=== PATIENT | female | born 1945 | race Caucasian/White ===

== ENCOUNTER 2017-05-10 09:30 | Emergency (ER) | payer MEDICARE, SELFPAY | END 2017-05-10 11:02 | disposition home or self-care (01) | PROVIDERS: Emergency Provider Nurse Practitioner Family; Family Provider Family Medicine; Visit Provider Nurse Practitioner Family | DX: N39.0 Urinary tract infection, site not specified (principal) | CPT/HCPCS: G0463; 81003; 87077; 87086; 87186; 99201 ==

== ENCOUNTER → 2018-07-06 09:47 | Outpatient (CLI) | payer MEDICARE, SELFPAY ==
--- NOTE | 2018-07-06 09:56 | XR_ITS ---
XR KUB Ordering Physician: Brianne Aguilar Patient Age: 73 years: Female HISTORY: ITS.REASON: CONSTIPATION, LOW ABD PAIN TECHNIQUE: Supine KUB COMPARISON :None available FINDINGS supine abdomen only Prominent gas is seen throughout majority of the colon is most notable feature. Most prominent gas at the right colon, transverse colon, splenic flexure and continuing through the left colon... Gas-filled large bowel measures up to 7.5 diameter. Again prominent gas throughout colon but severely dilated. Is patient passing gas? Minimal stool identified throughout the colon. There is also some minimal gas at the distal small bowel with upper normal caliber some these distal small bowel loops. No upright film to evaluate for air-fluid levels. Previous cholecystectomy. No organomegaly. No appreciable renal calculi. Degenerative changes spine with degenerative exuberant facet changes L5/S1 and to lesser L4/5 most notable. Lung bases partially imaged, clear IMPRESSION: ... Increased gas throughout colon. Prominent gaseous distention throughout large bowel. .Minimal stool in colon . gas-filled distal small bowel loops. Upper normal in caliber. Not significantly dilated
== END ==
PROVIDERS: PCP Nurse Practitioner Family; Visit Provider Nurse Practitioner Family
DX: K59.00 Constipation, unspecified (principal); R10.30 Lower abdominal pain, unspecified
CPT/HCPCS: 74018

== ENCOUNTER → 2018-07-20 11:22 | Outpatient (POV) | payer MEDICARE, SELFPAY | PROVIDERS: Visit Provider Nurse Practitioner Acute Care | DX: Z00.00 Encounter for general adult medical examination without abnormal findings (principal) ==

== ENCOUNTER 2018-07-23 22:33 | Inpatient (IN) ==
[2018-07-23 23:10] LABS: Basophils % 0.2 % (0.1-2.0); Eosinophils % 0.1 % (0.1-12.0); Hematocrit 29.8 % (37.0-47.0); Hemoglobin 8.3 g/dL (12.2-16.2); Lymphocytes % 9.4 % (10-50); Mean Corpuscular HGB Conc 27.9 g/dL (31.8-35.4); Mean Corpuscular Hemoglobin 19.5 pg (27.0-31.2); Mean Corpuscular Volume 69.9 fl (81-99); Mean Platelet Volume 6.8 fl (7.4-10.4); Monocytes # 0.3 K/mm3 (0.1-1.0); Neutrophils # 9.4 K/mm3 (1.8-7.8); Neutrophils % 87.3 % (37.0-80.0); Platelet Count 736 K/mm3 (142-424); Red Blood Count 4.27 M/mm3 (4.20-5.40); Red Cell Distribution Width 15.1 % (11.5-17.5); White Blood Count 10.8 K/mm3 (4.8-10.8)
[2018-07-23 23:24] LABS: Albumin/Globulin Ratio 0.7 (1.1-1.8); Anion Gap 16.9 mEq/L (5-15); Bilirubin,Total 0.4 mg/dL (0.2-1.0); Calcium 9.1 mg/dL (8.5-10.1); Globulin 4.2 gm/dl (1.3-3.2); Total Protein,Serum 7.2 gm/dL (6.4-8.2)
[2018-07-23 23:35] LABS: Potassium 2.9 mmoL/L (3.5-5.1)
[2018-07-24 00:11] LABS: Lymphocytes % 7 % (10-50); Monocytes % 1 % (2-9); Neutrophils % 92 % (42-76); Total Cells Counted 100
[2018-07-24 00:13] LABS: Ovalocytes 1+
--- NOTE | 2018-07-24 00:28 | Emergency Department Note ---
ED Disposition Clinical Impression: Large bowel obstruction, Hypokalemia Anemia Qualifiers: Anemia type: unspecified type Qualified Code(s): D64.9 - Anemia, unspecified Disposition: Admitted As Inpatient Condition on Discharge: Fair Instructions: DI for Diarrhea and Traveler's Diarrhea -- Adult, DI for Diarrhea and Traveler's Diarrhea -- Child, DI for Nausea -- Adult, DI for Nausea -- Child Referrals: Shonna Desir MD [Primary Care Provider] - - Critical Care Critical Care Time: No Attestation: On 07/23/18, the high probability of a clinically significant, sudden or life threatening deterioration of the following system(s) required my full and direct attention, intervention and personal management. The time I documented below is in addition to time spent performing reported procedures but includes the following listed in this critical care notation. Medical Decision Making - Medical Records Medical records reviewed: Yes: I reviewed the patient's medical records. - [place] Inquiry Pt receiving controlled substance: No Vital Signs: 07/23/18 22:34 Temperature 98.8 F Temperature Source Oral Pulse Rate [Apical] 147 H Respiratory Rate 16 Blood Pressure [Right Arm] 88/60 L Blood Pressure Mean [Right Arm] 69 Blood Pressure Source [Right Arm] Manual Cuff/ Auscultation Blood Pressure Position [Right Arm] Supine 02 Sat by Pulse Oximetry 97 Oxygen Delivery Method Room Air - Lab Data Lab results reviewed: Yes: I reviewed the patient's lab results. Lab Results 07/23/18 22:51: POC Glucose 145 H 07/23/18 22:55: WBC 10.8, RBC 4.27, Hgb 8.3 L, Hct 29.8 L, MCV 69.9 L, MCH 19.5 L, MCHC 27.9 L, RDW 15.1, Plt Count 736 H, MPV 6.8 L, Neut % (Auto) 87.3 H, Lymph % (Auto) 9.4 L, [place] % (Auto) 3.0, Eos % (Auto) 0.1, Baso % (Auto) 0.2, Neut # (Auto) 9.4 H, Lymph # (Auto) 1.0, [place] # (Auto) 0.3, Eos # (Auto) 0.0, Baso # (Auto) 0.0, Total Counted 100, Neutrophils % (Manual) 92 H, Lymphocytes % (Manual) 7 L, Monocytes % (Manual) 1 L, Platelet Estimate Normal, Microcytosis 2+, Ovalocytes 1+ 07/23/18 22:55: Sodium 135 L, Potassium 2.9 L*, Chloride 99, Carbon Dioxide 22, Anion Gap 16.9 H, BUN 12, Creatinine 0.87, Estimated Creat Clear 46, Estimated GFR 64, Est GFR ( Amer) 77, Glucose 158 H, Calcium 9.1, Total Bilirubin 0.4, AST 12 L, ALT 23, Alkaline Phosphatase 103, C-Reactive Protein 3.0 H, Total Protein 7.2, Albumin 3.0 L, Globulin 4.2 H, Albumin/Globulin Ratio 0.7 L 07/23/18 22:55: ESR 17 07/23/18 22:55: Lactate 1.4 Result diagrams: 07/23/18 22:55 07/23/18 22:55 Orders (Tests/Meds): ED MEDICATIONS Generic Name Dose Route Start Last Admin Trade Name Freq PRN Reason Stop Dose Admin Sodium Chloride 1,000 mls @ 999 mls/hr 07/23/18 23:00 07/24/18 00:08 Sod Chlor 0.9% 1000ml Bag IV 07/24/18 01:00 999 mls/hr .Q1H1M JIAN Administration Potassium Chloride/Water 100 mls @ 50 mls/hr 07/24/18 00:55 Potassium Chloride 20meq/100ml Ivpb IV 07/24/18 02:54 ONCE ONE Sodium Chloride 10 ml 07/23/18 22:59 Saline Flush 10ml Syringe IV 08/22/18 22:58 NEEDED PRN Maintain IV Site Discontinued Medications Generic Name Dose Route Start Last Admin Trade Name Freq PRN Reason Stop Dose Admin Ondansetron HCl 4 mg 07/23/18 22:59 07/23/18 23:01 Zofran 4mg/2ml Vial IV 07/23/18 23:00 4 mg ONCE ONE Administration ORDERS Category Date Time Status CT abdomen pelvis wo con Stat Cat Scan 07/23/18 22:56 Taken XR chest portable Stat Exams 07/23/18 22:56 Taken Magnesium Stat Lab 07/24/18 00:55 Ordered Occult Blood,Stool Stat Lab 07/24/18 00:55 Received Blood Culture Stat Micro 07/23/18 22:55 Received ECG Request by /Nse Stat Y 07/23/18 22:48 Ordered - Radiology Data #1 Image(s): Chest Image Reviewed: Yes I reviewed the patient's radiology image Preliminary Findings: Normal/NAD - CT Data CT Scan: Abdomen, Pelvis Time Received: 01:[address] Reviewed: Yes: I have viewed the radiologist's interpretation Preliminary Findings: Abnormal (bowel obstruction ) - ECG Data Tracing #1 Arrhythmias present: afib Ischemic changes: non-specific ST-T wave changes Tracing #2 Normal Sinus Rhythm: Yes Ischemic changes: non-specific ST-T wave changes - Physician Consults Physician Consulted: nuria Reason -: Admission Nausea/Vomiting/Diarrhea HPI - General Chief complaint: Nausea/Vomiting/Diarrhea Stated complaint: VOMITING, POSSIBLE BOWEL OBSTRUCTION Time Seen by Provider: 07/23/18 23:05 Mode of Arrival: Ambulatory Source of Information: Patient, Spouse, Medical Record Limitations: No Limitations Description of Symptoms (Recalled from ER Triage Doc. by RN): PATIENT SAW DR. DESIR ON FRIDAY, WHO STATED PATIENT HAD UTI AND POSSIBLE BOWEL OBSTRUCTION. PATIENT HAS BEEN VOMITING TODAY WITHOUT NAUSEA X4; INITIAL EMESIS WAS DARK PER PATIENT REPORT; HAS APPOINTMENT WITH DR. MIRANDA - History of Present Illness HPI Narrative: over the last few weeks has progressive nausea and weakness with dec bowel mov but no melena or bleeding MD complaint: nausea, abdominal pain Onset (ago): day(s) Associated Abdominal Pain: Yes Severity: moderate Associated symptoms: weakness - Related Data Home Medications Medication Instructions Recorded Confirmed Aspirin [Aspir 81] 81 mg PO DIRECTED 07/23/18 07/24/18 Oxazepam 10 mg PO Q6 PRN 07/23/18 07/24/18 Saccharomyces Boulardii [Florastor] 250 mg PO DAILY 07/23/18 07/24/18 Allergies Allergy/AdvReac Type Severity Reaction Status Date / Time No Known Allergies Allergy Unverified 05/10/17 10:16 [facility] History - Hepatitis A Screen Drug use history?: No High risk sexual behaviors?: No History of sexually transmitted infection?: No Currently employed?: No Childcare worker?: No Do you have indoor plumbing?: Yes Do you have electricity?: Yes Attestation statement:: This patient has been screened for Hepatitis A risk factors. I have reviewed the patient's past medical history: Yes Medical History: Denies:: Diabetes Mellitus Type 1, Diabetes Mellitus Type 2, Internal Pacemaker, Lung Disease Other Surgeries: No: Pacemaker - Social History Smoking Status: Never smoker Alcohol Intake: never Occupational Status: other - Psychiatric History Expresses thoughts of harming self/others: None Suicide Plan Description: No Plan ROS Obtained: Yes All systems reviewed & no additional complaints - Constitutional Constitutional: Denies fever(s) - Eyes Eyes: Denies change in vision - ENT Ears, Nose, Mouth, and Throat: Denies sore throat - Cardiovascular Cardiovascular: Denies chest pain - Respiratory Respiratory: No cough - Gastrointestinal Gastrointestingal: Reports: as per HPI, abdominal pain, nausea, vomiting. D enies: diarrhea - Genitourinary Female Genitourinary: Denies hematuria - Musculoskeletal Musculoskeletal: Denies joint pain, Denies joint swelling - Integumentary/Breasts Skin/Breast: Denies rash - Neurologic Neurologic: Denies seizure-like activity Physical Exam - General General appearance: alert - Head Head exam: normocephalic - Eye Eye exam: Present: PERRL, EOMI. Absent: scleral icterus - ENT ENT exam: Present: mucous membranes dry - Neck Neck exam: Absent: trachea midline - Respiratory Respiratory exam: Absent: respiratory distress - Cardiovascular Cardiovascular exam: Present: regular rate, systolic murmur, +S4 - Abdominal Exam Abdominal exam: Present: soft - Extremities Exam Extremities exam: Present: full ROM - Neurological Exam Neurological exam: Present: alert, oriented X3, CN II-XII intact - Psychiatric Psychiatric exam: Present: normal affect - Skin Skin exam: Absent: rash
--- NOTE | 2018-07-24 07:16 | History & Physical Report ---
*Admission Date: 07/24/18 *Chief complaint: Vomiting *History of present illness: 73-year-old female who is in relatively good health presented to the emergency department with multiple episodes of vomiting and increasing weakness. Patient tells me she had been seen in our office on Friday by Dr. Desir with episodes of bloating, poor appetite with a 6 pound weight loss, and nausea. Apparently Dr. Desir felt like the patient may have a bowel obstruction. It was arranged for her to have both upper and lower scopes by Dr. Winn which is scheduled for today. Patient started her bowel prep yesterday which seemed to trigger the vomiting. After multiple episodes of vomiting and increasing weakness EMS was called and she was transported to the emergency department. Patient does report a change in bowel habits over the last several months although she still goes daily but describes her bowel movements as being smaller. Workup in the emergency department revealed a microcytic anemia in addition to a large bowel obstruction and suspicious for a lesion on the left colon. Patient has been admitted for further workup. [facility] History I have reviewed the patient's past medical history: Yes Medical History: Denies:: Cancer, Diabetes Mellitus Type 1, Diabetes Mellitus Type 2, Internal Pacemaker, Lung Disease, MRSA *Have you ever received a pneumonia vaccine?: Yes (2017 (5 yr)) *Have you received a flu vaccine this season?: Yes (Fall 2017) Other Surgeries: Yes: Cholecystectomy (1996). No: Pacemaker - *Social History Educational Level: Completed High School Smoking Status: Never smoker Alcohol Intake: never *Occupational Status:: other Housing: house Household Members: spouse *Travel in the last 8 weeks: None - Psychiatric History Expresses thoughts of harming self/others: None Suicide Plan Description: No Plan Family Hx:: no Cancer Review of Systems - Review of Systems Review of systems:: pertinent systems reviewed and negative unless documented below - Constitutional Denies body ache(s), Denies chills, Denies fever(s), Denies headache(s) - *Cardiovascular Denies chest pain - *Respiratory Denies chest congestion, Denies cough - *Gastrointestinal Reports bloating, Reports change in bowel habits, Reports change in stools, Reports cramping, Reports feeling full early, Denies coffee ground vomit, Denies constipation, Denies loose stools, Denies heartburn - *Musculoskeletal Denies abnormal walking - *Neurologic Denies seizure-like activity Meds Home Medications Medication Instructions Recorded Confirmed Type Aspirin [Aspir 81] 81 mg PO DIRECTED 07/23/18 07/24/18 History Oxazepam 10 mg PO Q6 PRN 07/23/18 07/24/18 History Saccharomyces Boulardii [Florastor] 250 mg PO DAILY 07/23/18 07/24/18 History Allergies Allergy/AdvReac Type Severity Reaction Status Date / Time No Known Allergies Allergy Unverified 05/10/17 10:16 Exam Vital signs and Labs for Last 24 Hours: Temp Pulse Resp BP Pulse Ox 98.6 F 86 18 130/62 95 07/24/18 04:00 07/24/18 04:00 07/24/18 04:00 07/24/18 04:00 07/24/18 04:00 Laboratory Results - last 24 hr 07/23/18 22:51: POC Glucose 145 H 07/23/18 22:55: WBC 10.8, RBC 4.27, Hgb 8.3 L, Hct 29.8 L, MCV 69.9 L, MCH 19.5 L, MCHC 27.9 L, RDW 15.1, Plt Count 736 H, MPV 6.8 L, Neut % (Auto) 87.3 H, Lymph % (Auto) 9.4 L, [place] % (Auto) 3.0, Eos % (Auto) 0.1, Baso % (Auto) 0.2, Neut # (Auto) 9.4 H, Lymph # (Auto) 1.0, [place] # (Auto) 0.3, Eos # (Auto) 0.0, Baso # (Auto) 0.0, Total Counted 100, Neutrophils % (Manual) 92 H, Lymphocytes % (Manual) 7 L, Monocytes % (Manual) 1 L, Platelet Estimate Normal, Microcytosis 2+, Ovalocytes 1+ 07/23/18 22:55: Sodium 135 L, Potassium 2.9 L*, Chloride 99, Carbon Dioxide 22, Anion Gap 16.9 H, BUN 12, Creatinine 0.87, Estimated Creat Clear 46, Estimated GFR 64, Est GFR ( Amer) 77, Glucose 158 H, Calcium 9.1, Total Bilirubin 0.4, AST 12 L, ALT 23, Alkaline Phosphatase 103, C-Reactive Protein 3.0 H, Total Protein 7.2, Albumin 3.0 L, Globulin 4.2 H, Albumin/Globulin Ratio 0.7 L 07/23/18 22:55: ESR 17 07/23/18 22:55: Lactate 1.4 07/24/18 00:00: Magnesium 2.1 07/24/18 00:55: Stool Occult Blood Positive A I & O for Last 24 hours: Intake & Output 07/21/18 07/22/18 07/23/18 07/24/18 11:59 11:59 11:59 11:59 Intake Total 3333 / 3333 Output Total 450 / 450 Balance 2883 / 2883 Weight 134 lb 4 oz Narrative: Patient is awake and alert resting comfortably in bed. Oropharynx is moist and clear. Neck is without lymphadenopathy. Lungs are clear to auscultation. Heart has a regular rate and rhythm with intermittent extra systolic beat. Abdomen is soft, nontender, nondistended with active bowel sounds. Neurologic exam is grossly normal. Patient has active range of motion in all extremities. Assessment and Plan (1) Large bowel obstruction Current visit: Yes Status: Acute Category: Medical Code(s): K56.609 - Unspecified intestinal obstruction, unspecified as to partial versus complete obstruction (2) Anemia Current visit: Yes Status: Acute Qualifiers: Anemia type: unspecified type Qualified Code(s): D64.9 - Anemia, unspecified Category: Medical Code(s): D64.9 - Anemia, unspecified (3) Hypokalemia Current visit: Yes Status: Acute Category: Medical Code(s): E87.6 - Hypokalemia - Assessment and plan all Dx Assessment and Plan for all problems:: Patient findings are highly suspicious for malignancy. GI service will be consulted. Patient was scheduled for outpatient upper endoscopy and colonoscopy. She has been unable to complete the prep due to her vomiting. I will order a fleets enema this morning. We will contact Dr. Winn when he is available to see if he has any other suggestions as hopefully the patient can at least have a flex sig or limited colonoscopy.
[2018-07-24 07:32] LABS: Basophils % 0.2 % (0.1-2.0); Monocytes # 0.4 K/mm3 (0.1-1.0); Neutrophils # 7.6 K/mm3 (1.8-7.8)
[2018-07-24 07:42] LABS: Anion Gap 13.9 mEq/L (5-15); Calcium 8.3 mg/dL (8.5-10.1)
[2018-07-24 07:44] LABS: Lymphocytes # 1.1 K/mm3 (0.7-4.5); Lymphocytes % 11.7 % (10-50); Mean Corpuscular HGB Conc 27.3 g/dL (31.8-35.4); Mean Corpuscular Hemoglobin 19.3 pg (27.0-31.2); Mean Corpuscular Volume 70.6 fl (81-99); Mean Platelet Volume 6.4 fl (7.4-10.4); Monocytes % 4.7 % (1.7-9.3); Neutrophils % 83.4 % (37.0-80.0); Platelet Count 602 K/mm3 (142-424); Red Blood Count 3.43 M/mm3 (4.20-5.40); Red Cell Distribution Width 15.2 % (11.5-17.5); White Blood Count 9.2 K/mm3 (4.8-10.8)
[2018-07-24 07:49] LABS: Potassium 2.9 mmoL/L (3.5-5.1)
--- NOTE | 2018-07-24 08:06 | Pharmacy Consult Notes ---
[facility] Pharmacy VTE Monitoring - Patient Demographics Admission date: 07/23/18 Report Date: 07/24/18 Time: 08:06 Allergies/Adverse Reactions: Patient Allergies No Known Allergies Allergy (Unverified 05/10/17 10:16) Height: 1.52 m Weight: 60.895 kg Patient Problems: Current Active Problems Large bowel obstruction (Acute) Hypokalemia (Acute) Anemia (Acute) - VTE Risk Labs: VTE Related Lab Results Hgb 8.3 g/dL (12.2-16.2) L 07/23/18 22:55 Hct 29.8 % (37.0-47.0) L 07/23/18 22:55 Plt Count 736 K/mm3 (142-424) H 07/23/18 22:55 BUN 9 mg/dL (7-18) 07/24/18 07:08 Creatinine 0.72 mg/dL (0.55-1.02) 07/24/18 07:08 Estimated Creat Clear 48 mL/min (50-200) 07/24/18 07:08 Was VTE Risk Assessment Performed: Yes VTE Score: 5 VTE Risk Level: Low Risk Clinical Trial Participant: No - Prophylaxis VTE Prophylaxis Ordered?: Yes Types of VTE Prophylaxis: TEDS Knee High Location of Applied Device: Not Applicable
[2018-07-24 08:10] LABS: Hemoglobin 6.6 g/dL (12.2-16.2)
[2018-07-24 08:11] LABS: Hematocrit 24.2 % (37.0-47.0)
--- NOTE | 2018-07-24 09:09 | Progress Note ---
[facility] Anesthesia Checklist - Patient Identification Patient Identification: Arm Band, Verbal (Name & ) - Structural Data Admitted From: Inpatient Planned Operative Procedure/s: EGD/Colonoscopy Consent for Planned Operative Procedure(s) Verified: Yes Verified Documents: Surgical Consent, History and Physical - NPO Status Verified Time NPO: 00:00 - Chart Verification Results Verified: CBC, BMP - Additional verifications Anesthesia Reactions: Yes (PONV) - Airway Assessment C-Spine Mobility Assessed: Yes TMJ Mobility Assessed: Yes Dentition: Poor Dentition (missing teeth) - Neurological Assessment Level of Consciousness: Awake Hx Seizures: No Numbness or tingling in extremities: No - Anesthesia Plan Anesthesia Risk discussed: Yes Anesthesia Plan: Verified Anesthesia Type: [facility] History I have reviewed the patient's past medical history: Yes Medical History: Reports:: Anxiety, Gastroesophageal Reflux Disease(GERD) Denies:: Cancer, Diabetes Mellitus Type 1, Diabetes Mellitus Type 2, Internal Pacemaker, Lung Disease, MRSA *Have you ever received a pneumonia vaccine?: Yes (2017 (5 yr)) *Have you received a flu vaccine this season?: Yes (Fall 2017) Other Surgeries: Yes: Cholecystectomy (1996). No: Pacemaker - *Social History Educational Level: Completed High School Smoking Status: Never smoker Alcohol Intake: never *Occupational Status:: other Housing: house Household Members: spouse *Travel in the last 8 weeks: None - Psychiatric History Expresses thoughts of harming self/others: None Suicide Plan Description: No Plan Family Hx:: no Cancer
--- NOTE | 2018-07-24 10:52 | Discharge Summary ---
General - General Admission date:: 07/24/18 Discharge date: 07/24/18 HPI HPI: 73-year-old female who is in relatively good health presented to the emergency department with multiple episodes of vomiting and increasing weakness. Patient tells me she had been seen in our office on Friday by Dr. Desir with episodes of bloating, poor appetite with a 6 pound weight loss, and nausea. Apparently Dr. Desir felt like the patient may have a bowel obstruction. It was arranged for her to have both upper and lower scopes by Dr. Winn which is scheduled for today. Patient started her bowel prep yesterday which seemed to trigger the vomiting. After multiple episodes of vomiting and increasing weakness EMS was called and she was transported to the emergency department. Patient does report a change in bowel habits over the last several months a lthough she still goes daily but describes her bowel movements as being smaller. Workup in the emergency department revealed a microcytic anemia in addition to a large bowel obstruction and suspicious for a lesion on the left colon. Patient has been admitted for further workup. Hospital Course Hospital Course: Patient was admitted and GI was consulted. Patient had a limited scope that revealed a large sigmoid mass. then made arrangements to transfer the patient to for further treatment including likely surgery. Accepting physician is Dr. Butler. Objective Vital signs: Temp Pulse Resp BP Pulse Ox 98.5 F 83 18 134/58 L 95 07/24/18 07:56 07/24/18 07:56 07/24/18 07:56 07/24/18 07:56 07/24/18 07:56 Results Labs on day of discharge: Labs from last 24 hours 07/24/18 07/24/18 07/24/18 07:08 07:08 00:55 WBC 9.2 RBC 3.43 L Hgb 6.6 L* D Hct 24.2 L MCV 70.6 L MCH 19.3 L MCHC 27.3 L RDW 15.2 Plt Count 602 H MPV 6.4 L Neut % (Auto) 83.4 H Lymph % (Auto) 11.7 [place] % (Auto) 4.7 Eos % (Auto) 0.0 L Baso % (Auto) 0.2 Neut # (Auto) 7.6 Lymph # (Auto) 1.1 [place] # (Auto) 0.4 Eos # (Auto) 0.0 Baso # (Auto) 0.0 Total Counted Neutrophils % (Manual) Lymphocytes % (Manual) Monocytes % (Manual) Platelet Estimate Microcytosis Ovalocytes ESR Sodium 139 Potassium 2.9 L* Chloride 106 Carbon Dioxide 22 Anion Gap 13.9 BUN 9 Creatinine 0.72 Estimated Creat Clear 48 Estimated GFR 79 Est GFR ( Amer) 96 D Glucose 111 H D POC Glucose Lactate Calcium 8.3 L Magnesium 2.1 Total Bilirubin AST ALT Alkaline Phosphatase C-Reactive Protein Total Protein Albumin Globulin Albumin/Globulin Ratio Stool Occult Blood Positive A 07/24/18 07/23/18 07/23/18 00:00 22:55 22:55 WBC RBC Hgb Hct MCV MCH MCHC RDW Plt Count MPV Neut % (Auto) Lymph % (Auto) [place] % (Auto) Eos % (Auto) Baso % (Auto) Neut # (Auto) Lymph # (Auto) [place] # (Auto) Eos # (Auto) Baso # (Auto) Total Counted Neutrophils % (Manual) Lymphocytes % (Manual) Monocytes % (Manual) Platelet Estimate Microcytosis Ovalocytes ESR 17 Sodium Potassium Chloride Carbon Dioxide Anion Gap BUN Creatinine Estimated Creat Clear Estimated GFR Est GFR ( Amer) Glucose POC Glucose Lactate 1.4 Calcium Magnesium 2.1 Total Bilirubin AST ALT Alkaline Phosphatase C-Reactive Protein Total Protein Albumin Globulin Albumin/Globulin Ratio Stool Occult Blood 07/23/18 07/23/18 07/23/18 22:55 22:55 22:51 WBC 10.8 RBC 4.27 Hgb 8.3 L Hct 29.8 L MCV 69.9 L MCH 19.5 L MCHC 27.9 L RDW 15.1 Plt Count 736 H MPV 6.8 L Neut % (Auto) 87.3 H Lymph % (Auto) 9.4 L [place] % (Auto) 3.0 Eos % (Auto) 0.1 Baso % (Auto) 0.2 Neut # (Auto) 9.4 H Lymph # (Auto) 1.0 [place] # (Auto) 0.3 Eos # (Auto) 0.0 Baso # (Auto) 0.0 Total Counted 100 Neutrophils % (Manual) 92 H Lymphocytes % (Manual) 7 L Monocytes % (Manual) 1 L Platelet Estimate Normal Microcytosis 2+ Ovalocytes 1+ ESR Sodium 135 L Potassium 2.9 L* Chloride 99 Carbon Dioxide 22 Anion Gap 16.9 H BUN 12 Creatinine 0.87 Estimated Creat Clear 46 Estimated GFR 64 Est GFR ( Amer) 77 Glucose 158 H POC Glucose 145 H Lactate Calcium 9.1 Magnesium Total Bilirubin 0.4 AST 12 L ALT 23 Alkaline Phosphatase 103 C-Reactive Protein 3.0 H Total Protein 7.2 Albumin 3.0 L Globulin 4.2 H Albumin/Globulin Ratio 0.7 L Stool Occult Blood DS: Diagnosis - Discharge Diagnosis (1) Rectal mass Status: Acute (2) Large bowel obstruction Status: Acute (3) Anemia Status: Acute (4) Hypokalemia Status: Acute Discharge Plan - Patient Discharge Instructions ACTIVITY: Continue current activity DIET: continue same diet Patient Instructions: DI for Mechanical Bowel Obstruction, DI for Hypokalemia - Follow up Plan Disposition: Xfer Short-Term Hosp Home Medications: Home Medications Medication Instructions Recorded Confirmed Type Oxazepam 10 mg PO Q6HP PRN 07/23/18 07/24/18 History Saccharomyces Boulardii [Florastor] 250 mg PO DAILY 07/23/18 07/24/18 History Ferrous Sulfate [Iron] 325 mg PO BID 07/24/18 07/24/18 History Prescriptions/Medication Reconciliation: Continue Saccharomyces Boulardii [Florastor] 250 mg PO DAILY Oxazepam 10 mg PO Q6HP PRN PRN Reason: Anxiety Ferrous Sulfate [Iron] 325 mg PO BID Discontinued Aspirin [Aspir 81] 81 mg PO DIRECTED
== END 2018-07-24 21:42 | disposition short-term general hospital (02) | DRG 376 ==
LOC: ER 22:33 → 2ND 07-24 01:00
PROVIDERS: ADMIT Internal Medicine Adolescent Medicine; ATTEND Family Medicine
CPT/HCPCS: 71010; 71045; 74176; 80048; 80053; 82272; 82962; 83605; 83735; 85007; 85025; 85651; 86140; 87040; 93005; 96365; 96366; 96376; 99285; G0328; J2405

== ENCOUNTER → 2018-10-13 14:52 | Outpatient (CLI) | payer MEDICARE, SELFPAY ==
[2018-10-13 15:56] LABS: Microscopic, Urine URINE MICROSCOPIC (MICROSCOPIC)
[2018-10-13 16:21] LABS: Basophils % 0.7 % (0.1-2.0); Eosinophils # 0.1 K/mm3 (0.0-0.4); Eosinophils % 1.9 % (0.1-12.0); Hematocrit 35.9 % (37.0-47.0); Hemoglobin 11.2 g/dL (12.2-16.2); Lymphocytes # 2.2 K/mm3 (0.7-4.5); Lymphocytes % 42.8 % (10-50); Mean Corpuscular HGB Conc 31.1 g/dL (31.8-35.4); Mean Corpuscular Hemoglobin 25.6 pg (27.0-31.2); Mean Corpuscular Volume 82.2 fl (81-99); Monocytes # 0.2 K/mm3 (0.1-1.0); Monocytes % 4.4 % (1.7-9.3); Neutrophils # 2.6 K/mm3 (1.8-7.8); Neutrophils % 50.2 % (37.0-80.0); Platelet Count 404 K/mm3 (142-424); Red Blood Count 4.37 M/mm3 (4.20-5.40); Red Cell Distribution Width 18.7 % (11.5-17.5); White Blood Count 5.1 K/mm3 (4.8-10.8)
[2018-10-13 16:51] LABS: Appearance,Urine CLEAR (Clear); Bilirubin,Urine Negative (Negative); Blood, Urine Negative (Negative); Color,Urine YELLOW (Yellow); Glucose,Urine (UA) Negative (Negative); Ketones,Urine Negative (Negative); Leukocyte Esterase,Urine Negative (Negative); Nitrate,Urine Negative (Negative); Protein,Urine Negative (Negative); Specific Gravity, Urine 1.015 (1.005-1.030); Urobilinogen,Urine 0.2 EU/dl (0.2)
[2018-10-13 16:52] LABS: Anion Gap 14.5 mEq/L (5-15); Blood Urea Nitrogen 15 mg/dL (7-18); Calcium 9.5 mg/dL (8.5-10.1); Carbon Dioxide 25 mmol/L (21.0-32.0); Chloride 103 mmol/L (98-107); Creatinine,Serum 0.74 mg/dL (0.55-1.02); Estimated Glomerular Filt Rate 77 ml/min (>60); GFR (African American) 93 ML/MIN (>60); Glucose 105 mg/dL (74-106); Potassium 4.5 mmoL/L (3.5-5.1); Sodium 138 mmol/L (136-145)
[2018-10-13 17:21] LABS: Bacteria,Urine Trace /lpf
== END ==
PROVIDERS: Visit Provider Surgery
DX: C18.9 Malignant neoplasm of colon, unspecified (principal)
CPT/HCPCS: 80048; 81001; 85025

== ENCOUNTER 2018-10-16 09:06 | Day surgery (SDC) | payer MEDICARE, SELFPAY ==
[2018-10-15 13:57] VITALS: BMI 20.5
[2018-10-16] VITALS (11 sets, daily range): BP systolic 94–120; BP diastolic 54–79; PULSE 63–98; RESP 16–20; TEMP 36.1–36.7; O2SAT 98–100
--- NOTE | 2018-10-16 11:09 | XR_ITS ---
XR chest portable. 50 8:00 AM HISTORY: Evaluate for possible pneumothorax, attempted line placement ITS.REASON: PNEUMOTHORAX ORDERING PHYSICIAN: Terence Diaz MD PATIENT AGE: 73 years COMPARISON: 07/23/2018 FINDINGS: 2 images are submitted from the OR showing no obvious pneumothorax. The lungs are clear. Normal heart size. IMPRESSION: No evidence of pneumothorax.
--- NOTE | 2018-10-16 11:46 | FL_ITS ---
Fluoro up to 1 hour CLINICAL INDICATION: ITS.REASON: PORT A CATH PLACEMENT ORDERING PHYSICIAN: Terence Diaz MD PATIENT AGE: 73 years Comparison: None Fluoroscopy time: 1 minute and 6 seconds FINDINGS: Single image submitted with the C-arm during placement of Mediport shows the tip to be in region superior vena cava. IMPRESSION: Fluoroscopy assisted Mediport placement
--- NOTE | 2018-10-16 11:48 | HMH.OPNOTE ---
Date of procedure: 10/16/18 Pre-op Diagnosis:: Colorectal cancer Post-op Diagnosis:: Same Procedure performed:: Port-A-Cath placement Surgeon:: Terence Diaz MD Retail Banker(s):: Yonny FACEPIECE LINE SUPERVISOR:: Donny Mcneal Anesthesia: LMA Estimated blood loss (mL): 10 Operative findings:: Attempts at left subclavian and left internal jugular venous access not successful. Port placed by way of right subclavian vein access without difficulty. Port flushed without difficulty. Chest x-ray pending. Operative note:: After informed consent was obtained the patient was taken to the operating room and placed in the supine position. General anesthesia with laryngeal mask airway was achieved. Her left neck and chest were prepped and draped in a sterile fashion. After infiltration local anesthetic attempts were made to access the left subclavian vein. Multiple attempts were not successful in obtaining and maintaining appropriate access. After infiltration with local anesthetic a finder needle was utilized to help locate the appropriate access point for the internal jugular vein. Appropriate aspiration was noted with finder needle; however, the large-bore needle was not able to be successfully and continuously entered into the internal jugular vein for guidewire placement. Additional attempts were not successful and the decision was made to forego left-sided access. A chest x-ray revealed no pneumothorax. The patient's right chest and neck were then prepped and draped in a sterile fashion. A large-bore needle was utilized to easily access the right subclavian vein. The guidewire was placed in position. A transverse incision was made at the exit site for the guidewire. The underlying tissue was dissected to the fascial margin. A dilator with sheath was then placed over the guidewire. The port catheter was placed through the sheath after the dilator and guidewire were removed. The sheath was then removed. Fluoroscopy was utilized to achieve the appropriate length (cut site) for the catheter. The catheter was then secured to the hub without difficulty. The hub was then secured to the underlying fascia with interrupted Prolene. The deep subcutaneous tissue was reapproximated with interrupted Vicryl and skin was closed with interrupted 4-0 Monocryl. Sterile dressings were applied after the port was flushed with 9 mL of heparinized saline. Patient was transferred to recovery in stable condition after removal of her laryngeal mask airway. Chest x-ray is pending. Condition: stable Disposition: PACU Specimens:: None Complications:: No immediate. Chest x-ray pending.
--- NOTE | 2018-10-16 11:57 | P.PN_ITS ---
[facility] Anesthesia Checklist - Patient Identification Patient Identification: Arm Band, Verbal (Name & ) - Structural Data Admitted From: Home Planned Operative Procedure/s: Port a cath insertion Consent for Planned Operative Procedure(s) Verified: Yes Verified Documents: Surgical Consent, History and Physical - NPO Status Verified Time NPO: 00:00 - Additional verifications Anesthesia Reactions: No - Airway Assessment C-Spine Mobility Assessed: Yes TMJ Mobility Assessed: Yes Dentition: Good Dentition - Neurological Assessment Level of Consciousness: Awake, Alert, Appropriate, Follows Commands Hx Seizures: No Numbness or tingling in extremities: No - Anesthesia Plan Anesthesia Risk discussed: Yes Anesthesia Plan: Verified ASA Class: III Anesthesia Type: General [facility] History I have reviewed the patient's past medical history: Yes Medical History: Reports:: Anxiety, Cancer (rectal cancer), Gastroesophageal Reflux Disease(GERD) Denies:: Diabetes Mellitus Type 1, Diabetes Mellitus Type 2, Internal Pacemaker, Lung Disease, MRSA, Seizures *Have you ever received a pneumonia vaccine?: Yes *Have you received a flu vaccine this season?: Yes Other Medical History: Denies: Blood Transfusion Reaction Other Surgeries: Yes: Cancer Surgery, Cholecystectomy (1996), Colonoscopy, Hysterectomy-Total. No: Pacemaker Amputation: No Fractures: No - *Social History Educational Level: Completed High School Smoking Status: Never smoker Alcohol Intake: never Substance Use Type: denies use *Occupational Status:: other, retired Housing: house Household Members: spouse *Travel in the last 8 weeks: None - Psychiatric History Expresses thoughts of harming self/others: None Suicide Plan Description: No Plan Pschychiatric History:: Reports:: Anxiety Family Hx:: Diabetes, Hypertension, Stroke
--- NOTE | 2018-10-16 11:57 | HMH.ANESI ---
[facility] Anesthesia Record Part I Intake, IV Amount: 1,400 Estimated blood loss (mL): 30 Urine output (mL): 0 (NM) Blood Products used (#): none Blood Pressure: 118/67 SaO2: 98 Pulse Rate: 98 Respiratory Rate: 16 Temperature: 97.0 F Patient is:: Drowsy, Oral/Nasal airway Stable to PACU at:: 11:50
--- NOTE | 2018-10-16 11:59 | P.PN_ITS ---
[facility] Anesthesia Record Part II Discharge Time: 12:20 Destination: Surgical Day Care (OP Surgery) PACU nurse assessment reviewed?: Yes Patient Condition:: Good Anesthesia Complications:: None Swallowing reflex intact?: Yes Cyanosis?: No
--- NOTE | 2018-10-16 12:19 | XR_ITS ---
XR chest portable HISTORY: Follow-up line placement ITS.REASON: PAC placement ORDERING PHYSICIAN: Terence Diaz MD PATIENT AGE: 73 years COMPARISON: 10/16/2018 FINDINGS: Right subclavian Mediport catheter has been placed. The tip is in region of the superior vena cava in good position. No evidence of pneumothorax. There are minimal atelectatic changes in the right lung base medially. Lungs are otherwise clear with no acute bony findings. IMPRESSION: Right subclavian Mediport catheter tip in the region of the SVC without evidence of pneumothorax
--- NOTE | 2018-10-16 13:05 | PC.NURSE ---
1220-Radiology at bedside for portable chest xray to confirm PAC placement.
== END 2018-10-16 13:40 | disposition home or self-care (01) ==
LOC: OR 09:07
PROVIDERS: PCP Family Medicine; Visit Provider Surgery
PROC: (CPT 36561; principal; 2018-10-16 10:45)
DX: C18.9 Malignant neoplasm of colon, unspecified (principal)
CPT/HCPCS: 36561; 71045; 76000; 93005; 96374; C1788; J1642; J2405

== ENCOUNTER 2018-10-20 08:44 | Outpatient (CLI) | payer MEDICARE, SELFPAY ==
[2018-10-20] VITALS (14 sets, daily range): BP systolic 107–122; BP diastolic 55–69; PULSE 58–79; RESP 18–20; TEMP 36.4–36.6; O2SAT 97–99
== END 2018-10-20 16:15 | disposition home or self-care (01) ==
LOC: INF 08:44
PROVIDERS: Visit Provider Internal Medicine Medical Oncology
DX: C19 Malignant neoplasm of rectosigmoid junction (principal)
CPT/HCPCS: 96411; 96413; 96415; 96417; J0640; J9190; J9263; Q0166

== ENCOUNTER → 2018-10-28 13:12 | Outpatient (CLI) | payer MEDICARE, SELFPAY ==
[2018-10-28 13:47] LABS: Basophils % 0.7 % (0.1-2.0); Eosinophils # 0.3 K/mm3 (0.0-0.4); Eosinophils % 4.5 % (0.1-12.0); Hematocrit 35.2 % (37.0-47.0); Hemoglobin 11.1 g/dL (12.2-16.2); Lymphocytes # 2.3 K/mm3 (0.7-4.5); Lymphocytes % 38.9 % (10-50); Mean Corpuscular HGB Conc 31.6 g/dL (31.8-35.4); Mean Corpuscular Hemoglobin 26.2 pg (27.0-31.2); Mean Corpuscular Volume 82.8 fl (81-99); Mean Platelet Volume 6.9 fl (7.4-10.4); Monocytes # 0.4 K/mm3 (0.1-1.0); Monocytes % 7.1 % (1.7-9.3); Neutrophils # 2.9 K/mm3 (1.8-7.8); Neutrophils % 48.8 % (37.0-80.0); Platelet Count 407 K/mm3 (142-424); Red Blood Count 4.25 M/mm3 (4.20-5.40); White Blood Count 5.9 K/mm3 (4.8-10.8)
[2018-10-28 15:28] LABS: Alanine Aminotransferase 37 U/L (12-78); Albumin Level 3.1 gm/dL (3.4-5.0); Albumin/Globulin Ratio 0.8 (1.1-1.8); Alkaline Phosphatase 121 U/L (46-116); Anion Gap 11.8 mEq/L (5-15); Aspartate Amino Transferase 24 U/L (15-37); Bilirubin,Total 0.2 mg/dL (0.2-1.0); Blood Urea Nitrogen 13 mg/dL (7-18); Calcium 9.3 mg/dL (8.5-10.1); Carbon Dioxide 28 mmol/L (21.0-32.0); Chloride 102 mmol/L (98-107); Creatinine,Serum 0.83 mg/dL (0.55-1.02); Estimated Glomerular Filt Rate 67 ml/min (>60); GFR (African American) 82 ML/MIN (>60); Globulin 3.8 gm/dl (1.3-3.2); Glucose 102 mg/dL (74-106); Potassium 4.8 mmoL/L (3.5-5.1); Sodium 137 mmol/L (136-145); Total Protein,Serum 6.9 gm/dL (6.4-8.2)
== END ==
PROVIDERS: Visit Provider Internal Medicine Medical Oncology
DX: C18.9 Malignant neoplasm of colon, unspecified (principal)
CPT/HCPCS: 36415; 80053; 85025

== ENCOUNTER 2018-11-03 08:20 | Outpatient (CLI) | payer MEDICARE, SELFPAY ==
[2018-11-03] VITALS (13 sets, daily range): BP systolic 102–122; BP diastolic 55–74; PULSE 66–68; RESP 20; TEMP 36.6–36.9; O2SAT 95–99
== END 2018-11-03 15:45 | disposition home or self-care (01) ==
LOC: INF 08:24
PROVIDERS: Visit Provider Internal Medicine Medical Oncology
DX: C20 Malignant neoplasm of rectum (principal)
CPT/HCPCS: 96411; 96413; 96415; 96417; J0640; J9190; J9263; Q0166

== ENCOUNTER → 2018-11-05 13:13 | Outpatient (CLI) | payer MEDICARE, SELFPAY | PROVIDERS: Visit Provider Family Medicine | DX: L89.310 Pressure ulcer of right buttock, unstageable (principal) | CPT/HCPCS: 87070; 87077; 87186; 87205 ==

== ENCOUNTER → 2018-11-11 10:05 | Outpatient (CLI) | payer MEDICARE, SELFPAY ==
[2018-11-11 10:24] LABS: Basophils % 0.5 % (0.1-2.0); Eosinophils # 0.1 K/mm3 (0.0-0.4); Eosinophils % 1.6 % (0.1-12.0); Hematocrit 40.5 % (37.0-47.0); Hemoglobin 12.4 g/dL (12.2-16.2); Lymphocytes % 33.3 % (10-50); Mean Corpuscular HGB Conc 30.6 g/dL (31.8-35.4); Mean Corpuscular Hemoglobin 26.7 pg (27.0-31.2); Mean Corpuscular Volume 87.4 fl (81-99); Mean Platelet Volume 7.5 fl (7.4-10.4); Monocytes # 0.3 K/mm3 (0.1-1.0); Monocytes % 4.8 % (1.7-9.3); Neutrophils # 3.7 K/mm3 (1.8-7.8); Neutrophils % 59.8 % (37.0-80.0); Platelet Count 289 K/mm3 (142-424); Red Blood Count 4.63 M/mm3 (4.20-5.40); Red Cell Distribution Width 17.9 % (11.5-17.5); White Blood Count 6.1 K/mm3 (4.8-10.8)
[2018-11-11 12:12] LABS: Alanine Aminotransferase 91 U/L (12-78); Albumin Level 3.2 gm/dL (3.4-5.0); Albumin/Globulin Ratio 0.8 (1.1-1.8); Alkaline Phosphatase 155 U/L (46-116); Aspartate Amino Transferase 70 U/L (15-37); Bilirubin,Total 0.3 mg/dL (0.2-1.0); Blood Urea Nitrogen 7 mg/dL (7-18); Calcium 9.7 mg/dL (8.5-10.1); Carbon Dioxide 25 mmol/L (21.0-32.0); Chloride 102 mmol/L (98-107); Creatinine,Serum 0.88 mg/dL (0.55-1.02); Estimated Glomerular Filt Rate 63 ml/min (>60); GFR (African American) 76 ML/MIN (>60); Globulin 3.8 gm/dl (1.3-3.2); Glucose 107 mg/dL (74-106); Sodium 140 mmol/L (136-145)
== END ==
PROVIDERS: Visit Provider Internal Medicine Hematology & Oncology
DX: C18.9 Malignant neoplasm of colon, unspecified (principal)
CPT/HCPCS: 36415; 80053; 85025

== ENCOUNTER 2018-11-16 08:31 | Outpatient (CLI) | payer MEDICARE, SELFPAY ==
[2018-11-16] VITALS (13 sets, daily range): BP systolic 95–116; BP diastolic 54–74; PULSE 55–68; RESP 20; TEMP 36.9; O2SAT 95–98
--- NOTE | 2018-11-16 16:52 | PC.NURSE ---
PT WAS HOOKED UP TO CONTINUOUS 5FU THAT WAS SENT PER [facility]. PT TO GET UN HOOKED ON FRIDAY AROUND 1 PM; HOME HEALTH IS AWARE
== END 2018-11-16 15:15 | disposition home or self-care (01) ==
LOC: INF 08:31
PROVIDERS: Visit Provider Internal Medicine Medical Oncology
DX: Z51.11 Encounter for antineoplastic chemotherapy (principal); C18.9 Malignant neoplasm of colon, unspecified
CPT/HCPCS: 96411; 96413; 96415; 96417; J0640; J9190; J9263; Q0166

== ENCOUNTER 2018-11-16 16:30 | Outpatient (RCR) | payer MEDICARE, SELFPAY | END 2018-11-16 16:35 | disposition home or self-care (01) | LOC: PT 16:30 | PROVIDERS: Visit Provider Family Medicine | DX: L89.310 Pressure ulcer of right buttock, unstageable (principal) | CPT/HCPCS: 97161; 97164; 97597 ==

== ENCOUNTER → 2018-11-26 09:20 | Outpatient (CLI) | payer MEDICARE, SELFPAY ==
[2018-11-26 09:45] LABS: Basophils % 0.4 % (0.1-2.0); Eosinophils % 0.6 % (0.1-12.0); Hematocrit 41.7 % (37.0-47.0); Hemoglobin 12.9 g/dL (12.2-16.2); Lymphocytes # 1.4 K/mm3 (0.7-4.5); Lymphocytes % 30.6 % (10-50); Mean Corpuscular HGB Conc 30.9 g/dL (31.8-35.4); Mean Corpuscular Hemoglobin 27.4 pg (27.0-31.2); Mean Corpuscular Volume 88.7 fl (81-99); Mean Platelet Volume 8.6 fl (7.4-10.4); Monocytes # 0.3 K/mm3 (0.1-1.0); Neutrophils # 2.8 K/mm3 (1.8-7.8); Neutrophils % 62.5 % (37.0-80.0); Platelet Count 139 K/mm3 (142-424); Red Cell Distribution Width 17.9 % (11.5-17.5); White Blood Count 4.5 K/mm3 (4.8-10.8)
[2018-11-26 12:03] LABS: Alanine Aminotransferase 160 U/L (12-78); Albumin Level 3.3 gm/dL (3.4-5.0); Albumin/Globulin Ratio 0.8 (1.1-1.8); Alkaline Phosphatase 325 U/L (46-116); Anion Gap 16.1 mEq/L (5-15); Aspartate Amino Transferase 106 U/L (15-37); Bilirubin,Total 0.6 mg/dL (0.2-1.0); Blood Urea Nitrogen 13 mg/dL (7-18); Calcium 10.1 mg/dL (8.5-10.1); Carbon Dioxide 23 mmol/L (21.0-32.0); Chloride 101 mmol/L (98-107); Creatinine,Serum 0.84 mg/dL (0.55-1.02); Estimated Glomerular Filt Rate 66 ml/min (>60); GFR (African American) 80 ML/MIN (>60); Globulin 4.2 gm/dl (1.3-3.2); Glucose 132 mg/dL (74-106); Potassium 3.1 mmoL/L (3.5-5.1); Sodium 137 mmol/L (136-145); Total Protein,Serum 7.5 gm/dL (6.4-8.2)
== END ==
PROVIDERS: Visit Provider Internal Medicine Medical Oncology
DX: C18.9 Malignant neoplasm of colon, unspecified (principal)
CPT/HCPCS: 36415; 80053; 85025

== ENCOUNTER 2018-12-01 08:26 | Outpatient (CLI) | payer MEDICARE, SELFPAY ==
[2018-12-01] VITALS (13 sets, daily range): BP systolic 97–112; BP diastolic 46–59; PULSE 56–69; RESP 20; TEMP 36.4; O2SAT 96–97
== END 2018-12-01 14:50 | disposition home or self-care (01) ==
LOC: INF 08:26
PROVIDERS: Visit Provider Internal Medicine Medical Oncology
DX: Z51.11 Encounter for antineoplastic chemotherapy (principal); C18.9 Malignant neoplasm of colon, unspecified
CPT/HCPCS: 96411; 96413; 96415; 96417; J0640; J9190; J9263; Q0166

== ENCOUNTER → 2018-12-09 08:59 | Outpatient (CLI) | payer MEDICARE, SELFPAY ==
[2018-12-09 09:28] LABS: Basophils % 0.4 % (0.1-2.0); Eosinophils # 0.1 K/mm3 (0.0-0.4); Eosinophils % 1.1 % (0.1-12.0); Hematocrit 38.1 % (37.0-47.0); Hemoglobin 12.1 g/dL (12.2-16.2); Lymphocytes # 1.5 K/mm3 (0.7-4.5); Lymphocytes % 27.5 % (10-50); Mean Corpuscular HGB Conc 31.8 g/dL (31.8-35.4); Mean Corpuscular Hemoglobin 27.2 pg (27.0-31.2); Mean Corpuscular Volume 85.4 fl (81-99); Mean Platelet Volume 8.1 fl (7.4-10.4); Monocytes # 0.3 K/mm3 (0.1-1.0); Monocytes % 4.4 % (1.7-9.3); Neutrophils # 3.7 K/mm3 (1.8-7.8); Neutrophils % 66.5 % (37.0-80.0); Platelet Count 110 K/mm3 (142-424); Red Blood Count 4.46 M/mm3 (4.20-5.40); Red Cell Distribution Width 17.3 % (11.5-17.5); White Blood Count 5.6 K/mm3 (4.8-10.8)
[2018-12-09 11:53] LABS: Alanine Aminotransferase 114 U/L (12-78); Albumin Level 3.2 gm/dL (3.4-5.0); Albumin/Globulin Ratio 0.8 (1.1-1.8); Alkaline Phosphatase 294 U/L (46-116); Anion Gap 11.6 mEq/L (5-15); Aspartate Amino Transferase 90 U/L (15-37); Bilirubin,Total 0.7 mg/dL (0.2-1.0); Blood Urea Nitrogen 13 mg/dL (7-18); Calcium 10.2 mg/dL (8.5-10.1); Carbon Dioxide 30 mmol/L (21.0-32.0); Chloride 98 mmol/L (98-107); Creatinine,Serum 0.88 mg/dL (0.55-1.02); Estimated Glomerular Filt Rate 63 ml/min (>60); GFR (African American) 76 ML/MIN (>60); Globulin 4.1 gm/dl (1.3-3.2); Glucose 113 mg/dL (74-106); Potassium 3.6 mmoL/L (3.5-5.1); Sodium 136 mmol/L (136-145); Total Protein,Serum 7.3 gm/dL (6.4-8.2)
== END ==
PROVIDERS: Visit Provider Internal Medicine Medical Oncology
DX: C18.9 Malignant neoplasm of colon, unspecified (principal)
CPT/HCPCS: 36415; 80053; 85025

== ENCOUNTER 2018-12-15 08:25 | Outpatient (CLI) | payer MEDICARE, SELFPAY ==
[2018-12-15] VITALS (9 sets, daily range): BP systolic 98–126; BP diastolic 48–64; PULSE 51–66; RESP 18; TEMP 36.7; O2SAT 98–100
== END 2018-12-15 12:55 | disposition home or self-care (01) ==
LOC: INF 08:25
PROVIDERS: Visit Provider Internal Medicine Medical Oncology
DX: C18.9 Malignant neoplasm of colon, unspecified (principal); Z51.11 Encounter for antineoplastic chemotherapy
CPT/HCPCS: 96411; 96413; 96415; 96417; J0640; J9190; J9263; Q0166

== ENCOUNTER → 2018-12-23 09:30 | Outpatient (CLI) | payer MEDICARE, SELFPAY ==
[2018-12-23 09:51] LABS: Basophils % 0.5 % (0.1-2.0); Eosinophils # 0.1 K/mm3 (0.0-0.4); Eosinophils % 1.2 % (0.1-12.0); Hematocrit 41.5 % (37.0-47.0); Hemoglobin 13.8 g/dL (12.2-16.2); Lymphocytes # 1.9 K/mm3 (0.7-4.5); Lymphocytes % 30.1 % (10-50); Mean Corpuscular HGB Conc 33.4 g/dL (31.8-35.4); Mean Corpuscular Hemoglobin 29.5 pg (27.0-31.2); Mean Corpuscular Volume 88.5 fl (81-99); Mean Platelet Volume 7.6 fl (7.4-10.4); Monocytes # 0.3 K/mm3 (0.1-1.0); Monocytes % 5.1 % (1.7-9.3); Neutrophils # 3.9 K/mm3 (1.8-7.8); Neutrophils % 63.2 % (37.0-80.0); Platelet Count 214 K/mm3 (142-424); Red Blood Count 4.69 M/mm3 (4.20-5.40); Red Cell Distribution Width 18.5 % (11.5-17.5); White Blood Count 6.2 K/mm3 (4.8-10.8)
== END ==
PROVIDERS: Visit Provider Internal Medicine Hematology & Oncology
DX: C18.9 Malignant neoplasm of colon, unspecified (principal)
CPT/HCPCS: 36415; 85025

== ENCOUNTER 2019-01-05 09:08 | Outpatient (CLI) | payer MEDICARE, SELFPAY ==
[2019-01-05] VITALS (8 sets, daily range): BP systolic 102–110; BP diastolic 52–96; PULSE 52–68; RESP 20; TEMP 36.9; O2SAT 95; BMI 18.5
[2019-01-05 09:29] LABS: Basophils % 0.5 % (0.1-2.0); Eosinophils % 0.8 % (0.1-12.0); Hemoglobin 12.4 g/dL (12.2-16.2); Lymphocytes # 1.9 K/mm3 (0.7-4.5); Lymphocytes % 44.3 % (10-50); Mean Corpuscular HGB Conc 32.6 g/dL (31.8-35.4); Mean Corpuscular Volume 92.2 fl (81-99); Monocytes # 0.3 K/mm3 (0.1-1.0); Monocytes % 6.2 % (1.7-9.3); Neutrophils # 2.1 K/mm3 (1.8-7.8); Neutrophils % 48.2 % (37.0-80.0); Platelet Count 267 K/mm3 (142-424); Red Blood Count 4.13 M/mm3 (4.20-5.40); Red Cell Distribution Width 20.3 % (11.5-17.5); White Blood Count 4.3 K/mm3 (4.8-10.8)
[2019-01-05 09:39] LABS: Alanine Aminotransferase 66 U/L (12-78); Albumin Level 3.1 gm/dL (3.4-5.0); Albumin/Globulin Ratio 0.7 (1.1-1.8); Alkaline Phosphatase 250 U/L (46-116); Anion Gap 13.6 mEq/L (5-15); Aspartate Amino Transferase 48 U/L (15-37); Bilirubin,Total 0.4 mg/dL (0.2-1.0); Blood Urea Nitrogen 16 mg/dL (7-18); Calcium 9.6 mg/dL (8.5-10.1); Carbon Dioxide 26 mmol/L (21.0-32.0); Chloride 100 mmol/L (98-107); Creatinine Clearance Estimated 34 mL/min (50-200); Creatinine,Serum 0.99 mg/dL (0.55-1.02); Estimated Glomerular Filt Rate 55 ml/min (>60); GFR (African American) 67 ML/MIN (>60); Globulin 4.3 gm/dl (1.3-3.2); Glucose 131 mg/dL (74-106); Sodium 137 mmol/L (136-145); Total Protein,Serum 7.4 gm/dL (6.4-8.2)
[2019-01-05 09:47] LABS: Potassium 2.6 mmoL/L (3.5-5.1)
== END 2019-01-05 15:00 | disposition home or self-care (01) ==
LOC: INF 09:08
PROVIDERS: Visit Provider Internal Medicine Medical Oncology
DX: C18.9 Malignant neoplasm of colon, unspecified (principal)
CPT/HCPCS: 80053; 85025; 96411; 96413; 96415; J0640; J9190; Q0166

== ENCOUNTER → 2019-01-13 09:28 | Outpatient (CLI) | payer MEDICARE, SELFPAY ==
[2019-01-13 10:31] LABS: Basophils % 0.5 % (0.1-2.0); Eosinophils # 0.1 K/mm3 (0.0-0.4); Eosinophils % 1.1 % (0.1-12.0); Hemoglobin 16.9 g/dL (12.2-16.2); Lymphocytes # 1.8 K/mm3 (0.7-4.5); Lymphocytes % 24.9 % (10-50); Mean Corpuscular HGB Conc 32.5 g/dL (31.8-35.4); Mean Corpuscular Hemoglobin 31.4 pg (27.0-31.2); Mean Corpuscular Volume 96.7 fl (81-99); Mean Platelet Volume 7.7 fl (7.4-10.4); Monocytes # 0.3 K/mm3 (0.1-1.0); Neutrophils % 69.5 % (37.0-80.0); Platelet Count 108 K/mm3 (142-424); Red Blood Count 5.38 M/mm3 (4.20-5.40); Red Cell Distribution Width 19.3 % (11.5-17.5); White Blood Count 7.1 K/mm3 (4.8-10.8)
[2019-01-13 11:17] LABS: Alanine Aminotransferase 56 U/L (12-78); Albumin Level 3.4 gm/dL (3.4-5.0); Albumin/Globulin Ratio 0.8 (1.1-1.8); Alkaline Phosphatase 221 U/L (46-116); Anion Gap 15.4 mEq/L (5-15); Aspartate Amino Transferase 57 U/L (15-37); Bilirubin,Total 0.6 mg/dL (0.2-1.0); Blood Urea Nitrogen 11 mg/dL (7-18); Calcium 9.8 mg/dL (8.5-10.1); Carbon Dioxide 22 mmol/L (21.0-32.0); Chloride 103 mmol/L (98-107); Creatinine,Serum 0.76 mg/dL (0.55-1.02); Estimated Glomerular Filt Rate 75 ml/min (>60); GFR (African American) 90 ML/MIN (>60); Globulin 4.2 gm/dl (1.3-3.2); Glucose 92 mg/dL (74-106); Potassium 4.4 mmoL/L (3.5-5.1); Sodium 136 mmol/L (136-145); Total Protein,Serum 7.6 gm/dL (6.4-8.2)
== END ==
PROVIDERS: Visit Provider Internal Medicine Medical Oncology
DX: C18.9 Malignant neoplasm of colon, unspecified (principal)
CPT/HCPCS: 36415; 80053; 85025

== ENCOUNTER 2019-01-19 09:06 | Outpatient (CLI) | payer MEDICARE, SELFPAY ==
[2019-01-19] VITALS (12 sets, daily range): BP systolic 93–118; BP diastolic 45–57; PULSE 48–63; RESP 18; TEMP 36.7–36.9; O2SAT 99–100
== END 2019-01-19 14:30 | disposition home or self-care (01) ==
LOC: INF 09:06
PROVIDERS: Visit Provider Internal Medicine Medical Oncology
DX: Z51.11 Encounter for antineoplastic chemotherapy (principal); C18.9 Malignant neoplasm of colon, unspecified
CPT/HCPCS: 96411; 96413; 96415; J0640; J9190; Q0166

== ENCOUNTER → 2019-01-27 09:30 | Outpatient (CLI) | payer MEDICARE, SELFPAY ==
[2019-01-27 10:02] LABS: Basophils % 0.4 % (0.1-2.0); Eosinophils # 0.1 K/mm3 (0.0-0.4); Eosinophils % 1.8 % (0.1-12.0); Hematocrit 40.6 % (37.0-47.0); Hemoglobin 13.4 g/dL (12.2-16.2); Lymphocytes # 2.1 K/mm3 (0.7-4.5); Lymphocytes % 32.2 % (10-50); Mean Corpuscular Hemoglobin 32.5 pg (27.0-31.2); Mean Corpuscular Volume 98.4 fl (81-99); Mean Platelet Volume 6.9 fl (7.4-10.4); Monocytes # 0.4 K/mm3 (0.1-1.0); Monocytes % 5.6 % (1.7-9.3); Platelet Count 289 K/mm3 (142-424); Red Blood Count 4.12 M/mm3 (4.20-5.40); Red Cell Distribution Width 18.2 % (11.5-17.5); White Blood Count 6.6 K/mm3 (4.8-10.8)
[2019-01-27 11:01] LABS: Alanine Aminotransferase 62 U/L (12-78); Albumin Level 3.6 gm/dL (3.4-5.0); Albumin/Globulin Ratio 0.8 (1.1-1.8); Alkaline Phosphatase 248 U/L (46-116); Anion Gap 17.4 mEq/L (5-15); Aspartate Amino Transferase 53 U/L (15-37); Bilirubin,Total 0.6 mg/dL (0.2-1.0); Blood Urea Nitrogen 14 mg/dL (7-18); Calcium 10.1 mg/dL (8.5-10.1); Carbon Dioxide 23 mmol/L (21.0-32.0); Chloride 100 mmol/L (98-107); Creatinine,Serum 0.87 mg/dL (0.55-1.02); Estimated Glomerular Filt Rate 64 ml/min (>60); GFR (African American) 77 ML/MIN (>60); Globulin 4.3 gm/dl (1.3-3.2); Glucose 96 mg/dL (74-106); Potassium 3.4 mmoL/L (3.5-5.1); Sodium 137 mmol/L (136-145); Total Protein,Serum 7.9 gm/dL (6.4-8.2)
== END ==
PROVIDERS: Visit Provider Internal Medicine Medical Oncology
DX: C18.9 Malignant neoplasm of colon, unspecified (principal)
CPT/HCPCS: 36415; 80053; 85025

== ENCOUNTER 2019-02-02 09:36 | Outpatient (CLI) | payer MEDICARE, SELFPAY ==
[2019-02-02 10:45] VITALS: BP 99/57; PULSE 68; RESP 18; TEMP 36.9; O2SAT 98
[2019-02-02 11:15] VITALS: BP 102/55; PULSE 68; RESP 20; TEMP 36.9
[2019-02-02 11:45] VITALS: BP 101/48; PULSE 58; RESP 20; TEMP 36.9; O2SAT 95
[2019-02-02 12:15] VITALS: BP 103/58; PULSE 52; RESP 20; TEMP 37.2; O2SAT 95
[2019-02-02 12:45] VITALS: BP 103/45; PULSE 72; RESP 20; TEMP 36.9; O2SAT 95
[2019-02-02 13:15] VITALS: BP 102/48; PULSE 72; RESP 20; TEMP 36.9; O2SAT 95
--- NOTE | 2019-02-02 15:44 | PC.NURSE ---
CALLED AND SPOKE WITH HOME HEALTH; PT WAS HOOKED UP TO CONTINUOUS 5FU AND WILL NEED TO BE UNHOOKED ON FRIDAY THE
== END 2019-02-02 13:15 | disposition home or self-care (01) ==
LOC: INF 09:36
PROVIDERS: Visit Provider Internal Medicine Medical Oncology
DX: Z51.11 Encounter for antineoplastic chemotherapy (principal); C18.9 Malignant neoplasm of colon, unspecified
CPT/HCPCS: 96411; 96413; 96415; J0640; J9190; Q0166

== ENCOUNTER → 2019-02-10 08:44 | Outpatient (CLI) | payer MEDICARE, SELFPAY ==
[2019-02-10 09:23] LABS: Basophils % 0.3 % (0.1-2.0); Eosinophils # 0.1 K/mm3 (0.0-0.4); Eosinophils % 1.6 % (0.1-12.0); Hematocrit 37.9 % (37.0-47.0); Hemoglobin 11.6 g/dL (12.2-16.2); Lymphocytes % 27.4 % (10-50); Mean Corpuscular HGB Conc 30.7 g/dL (31.8-35.4); Mean Corpuscular Hemoglobin 32.4 pg (27.0-31.2); Mean Corpuscular Volume 105.4 fl (81-99); Mean Platelet Volume 7.4 fl (7.4-10.4); Monocytes # 0.4 K/mm3 (0.1-1.0); Monocytes % 4.9 % (1.7-9.3); Neutrophils # 4.8 K/mm3 (1.8-7.8); Neutrophils % 65.6 % (37.0-80.0); Platelet Count 268 K/mm3 (142-424); Red Cell Distribution Width 18.3 % (11.5-17.5); White Blood Count 7.3 K/mm3 (4.8-10.8)
[2019-02-10 10:42] LABS: Alanine Aminotransferase 42 U/L (12-78); Albumin Level 3.3 gm/dL (3.4-5.0); Albumin/Globulin Ratio 0.8 (1.1-1.8); Alkaline Phosphatase 184 U/L (46-116); Anion Gap 13.5 mEq/L (5-15); Aspartate Amino Transferase 42 U/L (15-37); Bilirubin,Total 0.5 mg/dL (0.2-1.0); Blood Urea Nitrogen 13 mg/dL (7-18); Calcium 9.8 mg/dL (8.5-10.1); Carbon Dioxide 25 mmol/L (21.0-32.0); Chloride 106 mmol/L (98-107); Creatinine,Serum 0.88 mg/dL (0.55-1.02); Estimated Glomerular Filt Rate 63 ml/min (>60); GFR (African American) 76 ML/MIN (>60); Globulin 3.9 gm/dl (1.3-3.2); Glucose 93 mg/dL (74-106); Potassium 3.5 mmoL/L (3.5-5.1); Sodium 141 mmol/L (136-145); Total Protein,Serum 7.2 gm/dL (6.4-8.2)
== END ==
PROVIDERS: Visit Provider Internal Medicine Medical Oncology
DX: C18.9 Malignant neoplasm of colon, unspecified (principal)
CPT/HCPCS: 36415; 80053; 85025

== ENCOUNTER 2019-02-16 09:09 | Outpatient (CLI) | payer MEDICARE, SELFPAY ==
[2019-02-16] VITALS (12 sets, daily range): BP systolic 81–107; BP diastolic 47–67; PULSE 52–68; RESP 18; TEMP 36.4–36.7; O2SAT 99; BMI 17.3
== END 2019-02-16 13:13 | disposition home or self-care (01) ==
LOC: INF 09:09
PROVIDERS: Visit Provider Internal Medicine Medical Oncology
DX: Z51.11 Encounter for antineoplastic chemotherapy (principal); C18.9 Malignant neoplasm of colon, unspecified
CPT/HCPCS: 96409; 96413; 96415; 96417; J0640; J9190; Q0166

== ENCOUNTER → 2019-02-25 09:17 | Outpatient (CLI) | payer MEDICARE, SELFPAY ==
[2019-02-25 10:09] LABS: Basophils % 0.4 % (0.1-2.0); Eosinophils # 0.1 K/mm3 (0.0-0.4); Eosinophils % 1.9 % (0.1-12.0); Hematocrit 40.9 % (37.0-47.0); Hemoglobin 12.4 g/dL (12.2-16.2); Lymphocytes # 1.9 K/mm3 (0.7-4.5); Lymphocytes % 31.9 % (10-50); Mean Corpuscular HGB Conc 30.2 g/dL (31.8-35.4); Mean Corpuscular Hemoglobin 32.3 pg (27.0-31.2); Mean Platelet Volume 7.4 fl (7.4-10.4); Monocytes # 0.4 K/mm3 (0.1-1.0); Monocytes % 6.2 % (1.7-9.3); Neutrophils # 3.6 K/mm3 (1.8-7.8); Neutrophils % 59.6 % (37.0-80.0); Platelet Count 354 K/mm3 (142-424); Red Blood Count 3.82 M/mm3 (4.20-5.40); Red Cell Distribution Width 17.1 % (11.5-17.5); White Blood Count 6.1 K/mm3 (4.8-10.8)
[2019-02-25 11:27] LABS: Alanine Aminotransferase 47 U/L (12-78); Albumin Level 3.6 gm/dL (3.4-5.0); Albumin/Globulin Ratio 0.9 (1.1-1.8); Alkaline Phosphatase 215 U/L (46-116); Anion Gap 13.9 mEq/L (5-15); Aspartate Amino Transferase 39 U/L (15-37); Bilirubin,Total 0.5 mg/dL (0.2-1.0); Blood Urea Nitrogen 12 mg/dL (7-18); Calcium 9.9 mg/dL (8.5-10.1); Carbon Dioxide 25 mmol/L (21.0-32.0); Chloride 106 mmol/L (98-107); Estimated Glomerular Filt Rate 61 ml/min (>60); GFR (African American) 74 ML/MIN (>60); Globulin 4.1 gm/dl (1.3-3.2); Glucose 84 mg/dL (74-106); Potassium 3.9 mmoL/L (3.5-5.1); Sodium 141 mmol/L (136-145); Total Protein,Serum 7.7 gm/dL (6.4-8.2)
== END ==
PROVIDERS: PCP Family Medicine; Visit Provider Internal Medicine Medical Oncology
DX: C18.9 Malignant neoplasm of colon, unspecified (principal)
CPT/HCPCS: 36415; 80053; 85025

== ENCOUNTER 2019-03-02 09:07 | Outpatient (CLI) | payer MEDICARE, SELFPAY ==
[2019-03-02] VITALS (7 sets, daily range): BP systolic 101–117; BP diastolic 52–60; PULSE 54–59; RESP 18; TEMP 36.6; O2SAT 98–99
== END 2019-03-02 13:15 | disposition home or self-care (01) ==
LOC: INF 09:07
PROVIDERS: Visit Provider Internal Medicine Medical Oncology
DX: Z51.11 Encounter for antineoplastic chemotherapy (principal); C18.9 Malignant neoplasm of colon, unspecified
CPT/HCPCS: 96411; 96413; 96415; J0640; J9190; Q0166

== ENCOUNTER → 2019-03-11 09:30 | Outpatient (CLI) | payer MEDICARE, SELFPAY ==
[2019-03-11 09:55] LABS: Basophils % 0.5 % (0.1-2.0); Eosinophils # 0.1 K/mm3 (0.0-0.4); Eosinophils % 1.1 % (0.1-12.0); Hematocrit 39.3 % (37.0-47.0); Hemoglobin 12.9 g/dL (12.2-16.2); Lymphocytes # 2.2 K/mm3 (0.7-4.5); Lymphocytes % 30.5 % (10-50); Mean Corpuscular HGB Conc 32.9 g/dL (31.8-35.4); Mean Corpuscular Hemoglobin 34.5 pg (27.0-31.2); Mean Platelet Volume 7.9 fl (7.4-10.4); Monocytes # 0.3 K/mm3 (0.1-1.0); Monocytes % 4.6 % (1.7-9.3); Neutrophils # 4.6 K/mm3 (1.8-7.8); Neutrophils % 63.3 % (37.0-80.0); Platelet Count 283 K/mm3 (142-424); Red Blood Count 3.74 M/mm3 (4.20-5.40); Red Cell Distribution Width 14.8 % (11.5-17.5); White Blood Count 7.2 K/mm3 (4.8-10.8)
[2019-03-11 11:03] LABS: Alanine Aminotransferase 47 U/L (12-78); Albumin Level 3.4 gm/dL (3.4-5.0); Albumin/Globulin Ratio 0.9 (1.1-1.8); Alkaline Phosphatase 212 U/L (46-116); Anion Gap 14.6 mEq/L (5-15); Aspartate Amino Transferase 36 U/L (15-37); Bilirubin,Total 0.6 mg/dL (0.2-1.0); Blood Urea Nitrogen 13 mg/dL (7-18); Calcium 9.8 mg/dL (8.5-10.1); Carbon Dioxide 22 mmol/L (21.0-32.0); Chloride 107 mmol/L (98-107); Creatinine,Serum 0.91 mg/dL (0.55-1.02); Estimated Glomerular Filt Rate 61 ml/min (>60); GFR (African American) 73 ML/MIN (>60); Globulin 3.8 gm/dl (1.3-3.2); Glucose 122 mg/dL (74-106); Potassium 3.6 mmoL/L (3.5-5.1); Sodium 140 mmol/L (136-145); Total Protein,Serum 7.2 gm/dL (6.4-8.2)
== END ==
PROVIDERS: Visit Provider Internal Medicine Medical Oncology
DX: C18.9 Malignant neoplasm of colon, unspecified (principal)
CPT/HCPCS: 36415; 80053; 85025

== ENCOUNTER 2019-03-16 09:12 | Outpatient (CLI) | payer MEDICARE, SELFPAY ==
[2019-03-16] VITALS (10 sets, daily range): BP systolic 91–117; BP diastolic 43–60; PULSE 51–58; RESP 18; TEMP 36.4; O2SAT 100
== END 2019-03-16 13:55 | disposition home or self-care (01) ==
LOC: INF 09:12
PROVIDERS: Visit Provider Internal Medicine Medical Oncology
DX: Z51.11 Encounter for antineoplastic chemotherapy (principal); C18.9 Malignant neoplasm of colon, unspecified
CPT/HCPCS: 96411; 96413; 96415; J0640; J9190; Q0166

== ENCOUNTER → 2019-03-24 09:30 | Outpatient (CLI) | payer MEDICARE, SELFPAY ==
[2019-03-24 09:57] LABS: Basophils % 0.6 % (0.1-2.0); Eosinophils # 0.1 K/mm3 (0.0-0.4); Eosinophils % 1.4 % (0.1-12.0); Hemoglobin 13.1 g/dL (12.2-16.2); Lymphocytes # 2.1 K/mm3 (0.7-4.5); Lymphocytes % 29.8 % (10-50); Mean Corpuscular HGB Conc 32.8 g/dL (31.8-35.4); Mean Corpuscular Hemoglobin 34.8 pg (27.0-31.2); Mean Corpuscular Volume 105.9 fl (81-99); Mean Platelet Volume 7.8 fl (7.4-10.4); Monocytes # 0.2 K/mm3 (0.1-1.0); Monocytes % 3.4 % (1.7-9.3); Neutrophils # 4.5 K/mm3 (1.8-7.8); Neutrophils % 64.8 % (37.0-80.0); Platelet Count 310 K/mm3 (142-424); Red Blood Count 3.77 M/mm3 (4.20-5.40); Red Cell Distribution Width 14.2 % (11.5-17.5)
[2019-03-24 11:24] LABS: Alanine Aminotransferase 50 U/L (12-78); Albumin Level 3.6 gm/dL (3.4-5.0); Albumin/Globulin Ratio 0.9 (1.1-1.8); Alkaline Phosphatase 212 U/L (46-116); Aspartate Amino Transferase 45 U/L (15-37); Bilirubin,Total 0.7 mg/dL (0.2-1.0); Blood Urea Nitrogen 13 mg/dL (7-18); Calcium 9.5 mg/dL (8.5-10.1); Carbon Dioxide 20 mmol/L (21.0-32.0); Chloride 107 mmol/L (98-107); Creatinine,Serum 0.81 mg/dL (0.55-1.02); Estimated Glomerular Filt Rate 69 ml/min (>60); GFR (African American) 84 ML/MIN (>60); Globulin 3.9 gm/dl (1.3-3.2); Glucose 91 mg/dL (74-106); Sodium 139 mmol/L (136-145); Total Protein,Serum 7.5 gm/dL (6.4-8.2)
== END ==
PROVIDERS: Visit Provider Internal Medicine Medical Oncology
DX: C18.9 Malignant neoplasm of colon, unspecified (principal)
CPT/HCPCS: 36415; 80053; 85025

== ENCOUNTER 2019-03-30 09:09 | Outpatient (CLI) | payer MEDICARE, SELFPAY ==
[2019-03-30 10:05] VITALS: BP 98/55; PULSE 56; RESP 18; TEMP 36.4; O2SAT 100
[2019-03-30 10:35] VITALS: BP 101/56; PULSE 58; RESP 18; O2SAT 99
[2019-03-30 11:05] VITALS: BP 104/63; PULSE 59; RESP 18; O2SAT 99
[2019-03-30 11:35] VITALS: BP 97/53; PULSE 62; RESP 18; O2SAT 98
[2019-03-30 12:05] VITALS: BP 101/58; PULSE 60; RESP 18; O2SAT 99
[2019-03-30 12:40] VITALS: BP 103/48; PULSE 53; RESP 18; O2SAT 99
== END 2019-03-30 12:40 | disposition home or self-care (01) ==
LOC: INF 09:09
PROVIDERS: Visit Provider Internal Medicine Medical Oncology
DX: Z51.11 Encounter for antineoplastic chemotherapy (principal); C18.9 Malignant neoplasm of colon, unspecified
CPT/HCPCS: 96411; 96413; 96415; J0640; J1642; J9190; Q0166

== ENCOUNTER → 2019-04-14 10:13 | Outpatient (CLI) | payer MEDICARE, SELFPAY ==
[2019-04-14 11:20] LABS: Basophils # 0.1 K/mm3 (0-0.2); Basophils % 0.9 % (0.1-2.0); Eosinophils # 0.1 K/mm3 (0.0-0.4); Eosinophils % 1.8 % (0.1-12.0); Hematocrit 41.9 % (37.0-47.0); Hemoglobin 13.6 g/dL (12.2-16.2); Lymphocytes # 2.3 K/mm3 (0.7-4.5); Lymphocytes % 38.9 % (10-50); Mean Corpuscular HGB Conc 32.5 g/dL (31.8-35.4); Mean Corpuscular Hemoglobin 33.7 pg (27.0-31.2); Mean Corpuscular Volume 103.6 fl (81-99); Mean Platelet Volume 7.4 fl (7.4-10.4); Monocytes # 0.3 K/mm3 (0.1-1.0); Monocytes % 5.1 % (1.7-9.3); Neutrophils # 3.1 K/mm3 (1.8-7.8); Neutrophils % 53.3 % (37.0-80.0); Platelet Count 329 K/mm3 (142-424); Red Blood Count 4.04 M/mm3 (4.20-5.40); Red Cell Distribution Width 15.3 % (11.5-17.5); White Blood Count 5.8 K/mm3 (4.8-10.8)
[2019-04-14 16:35] LABS: Alanine Aminotransferase 43 U/L (12-78); Albumin Level 3.7 gm/dL (3.4-5.0); Albumin/Globulin Ratio 0.9 (1.1-1.8); Alkaline Phosphatase 192 U/L (46-116); Anion Gap 16.6 mEq/L (5-15); Aspartate Amino Transferase 33 U/L (15-37); Bilirubin,Total 0.6 mg/dL (0.2-1.0); Blood Urea Nitrogen 13 mg/dL (7-18); Calcium 9.7 mg/dL (8.5-10.1); Carbon Dioxide 22 mmol/L (21.0-32.0); Chloride 107 mmol/L (98-107); Creatinine,Serum 0.94 mg/dL (0.55-1.02); Estimated Glomerular Filt Rate 58 ml/min (>60); GFR (African American) 71 ML/MIN (>60); Glucose 96 mg/dL (74-106); Potassium 3.6 mmoL/L (3.5-5.1); Sodium 142 mmol/L (136-145); Total Protein,Serum 7.7 gm/dL (6.4-8.2)
== END ==
PROVIDERS: Visit Provider Internal Medicine Hematology & Oncology
DX: C18.9 Malignant neoplasm of colon, unspecified (principal)
CPT/HCPCS: 36415; 80053; 85025

== ENCOUNTER → 2019-04-19 08:21 | Outpatient (CLI) | payer MEDICARE, SELFPAY ==
--- NOTE | 2019-04-19 08:27 | CT_ITS ---
PROCEDURE: CT ABDOMEN PELVIS WITHOUT AND WITH CON CLINICAL INDICATION: COLON CA Colon cancer follow-up COMPARISON: ABDPELW CT abdomen pelvis w con from 08/09/2018 TECHNIQUE: IV Contrast: 75ML OPTIRAY [address] Axial images obtained with sagittal and coronal reformats. All CT scans at the facility use one or more dose reduction, viz: automated exposure control, ma/kV adjustment per patient size (including targeted exams where dose is matched to indication, i.e. head), or iterative reconstruction technique. FINDINGS: LOWER THORAX: No acute finding ABDOMEN & PELVIS: There are post cholecystectomy changes. Liver, spleen, adrenal glands, and pancreas have an unremarkable appearance. No renal or ureteral calculi. No renal mass. There is a left lower quadrant colostomy status post left hemicolectomy with a small Mary Jo's pouch noted. There are mildly prominent bowel loops of both large and small bowel in lower abdomen and pelvis which may be reflection of the previous surgery. No air-fluid levels apparent that would indicate obstruction. There is mild distention of the urinary bladder. There is mild prominence of the soft tissues at the perineal region slightly toward the left. This is of questionable clinical significance.. There are degenerative changes of the lumbar spine. No bony destructive process. IMPRESSION: Postsurgical changes from prior hemicolectomy with left lower quadrant colostomy and Wilkins's pouch. Mild dilatation of small-bowel loops once again noted and may be postsurgical.. No convincing evidence of metastatic disease. Dictated by: Morris Stevenson MD 04/20/2019 12:37 Electronically signed by Morris Stevenson MD in [place] 04/20/2019 12:37
--- NOTE | 2019-04-19 08:27 | CT_ITS ---
PROCEDURE: CT CHEST without and with CON CLINCAL INDICATION: COLON CA Colon cancer follow-up COMPARISON: CT ABDOMEN PELVIS W CON from 04/19/2019 TECHNIQUE: IV Contrast: 75ml Optiray 350 Axial images obtained with sagittal and coronal reformats. All CT scans at the facility use one or more dose reduction, viz: automated exposure control, ma/kV adjustment per patient size (including targeted exams where dose is matched to indication, i.e. head), or iterative reconstruction technique. FINDINGS: HEART,AORTA,PULMONARY ARTERIES Unremarkable. MEDIASTINAL AND HILAR STRUCTURES: There is MediPort catheter right subclavian approach. The tip is in the region the superior vena cava. No mediastinal or hilar mass or adenopathy. LUNGS: Unremarkable. No mass or consolidation. PLEURAL SPACES: No significant effusion. No evidence of pneumothorax. BONY STRUCTURES: Degenerative changes. Partial fusion T10 and T11. No bony destructive process evident. LYMPH NODES: No enlarged lymph nodes evident. UPPER ABDOMEN: Please see abdomen report ADDITIONAL FINDINGS: No other significant abnormalities. IMPRESSION: No convincing evidence of thoracic thoracic metastatic disease. Dictated by: Morris Stevenson MD 04/20/2019 12:28 Electronically signed by Morris Stevenson MD in [place] 04/20/2019 12:29
== END ==
PROVIDERS: PCP Family Medicine; Visit Provider Internal Medicine Medical Oncology
DX: C18.9 Malignant neoplasm of colon, unspecified (principal); Z03.89 Encounter for observation for other suspected diseases and conditions ruled out
CPT/HCPCS: 71260; 74177; J1642; Q9967

== ENCOUNTER 2019-05-21 08:50 | Outpatient (CLI) | payer MEDICARE, SELFPAY | END 2019-05-21 09:20 | disposition home or self-care (01) | LOC: INF 09:00 | PROVIDERS: Visit Provider Internal Medicine Medical Oncology | DX: Z45.2 Encounter for adjustment and management of vascular access device (principal) | CPT/HCPCS: 96523; J1642 ==

== ENCOUNTER 2019-06-16 09:02 | Outpatient (CLI) | payer MEDICARE, SELFPAY | END 2019-06-16 09:13 | disposition home or self-care (01) | LOC: INF 09:02 | PROVIDERS: Visit Provider Internal Medicine Medical Oncology | DX: Z45.2 Encounter for adjustment and management of vascular access device (principal) | CPT/HCPCS: 96523; J1642 ==

== ENCOUNTER 2019-07-14 08:55 | Outpatient (CLI) | payer MEDICARE, SELFPAY | END 2019-07-14 09:15 | disposition home or self-care (01) | LOC: INF 09:14 | PROVIDERS: Visit Provider Internal Medicine Medical Oncology | DX: Z45.2 Encounter for adjustment and management of vascular access device (principal) | CPT/HCPCS: 96523; J1642 ==

== ENCOUNTER 2019-08-30 09:03 | Outpatient (CLI) | payer MEDICARE, SELFPAY ==
[2019-08-30 09:10] VITALS: BMI 23.0
== END 2019-08-30 09:21 | disposition home or self-care (01) ==
LOC: INF 09:03
PROVIDERS: Visit Provider Internal Medicine Medical Oncology
DX: Z45.2 Encounter for adjustment and management of vascular access device (principal)
CPT/HCPCS: 96523; J1642

== ENCOUNTER → 2019-10-07 09:14 | Outpatient (CLI) | payer MEDICARE, SELFPAY ==
[2019-10-08 05:38] LABS: CEA 1.3 ng/mL (0.0-4.7)
== END ==
PROVIDERS: Visit Provider Surgery
DX: C18.9 Malignant neoplasm of colon, unspecified (principal)
CPT/HCPCS: 36415; 82378

== ENCOUNTER 2019-10-12 09:07 | Outpatient (CLI) | payer MEDICARE, SELFPAY | END 2019-10-12 09:20 | disposition home or self-care (01) | LOC: INF 09:07 | PROVIDERS: Visit Provider Internal Medicine Medical Oncology | DX: C18.9 Malignant neoplasm of colon, unspecified (principal); Z45.2 Encounter for adjustment and management of vascular access device | CPT/HCPCS: 96523; J1642 ==

== ENCOUNTER 2019-10-22 08:25 | Outpatient (CLI) | payer MEDICARE, SELFPAY ==
[2019-10-22 08:15] VITALS: BMI 24.4
[2019-10-22 08:31] LABS: Basophils % 0.8 % (0.1-2.0); Eosinophils # 0.2 K/mm3 (0.0-0.4); Eosinophils % 2.8 % (0.1-12.0); Hematocrit 38.2 % (37.0-47.0); Hemoglobin 12.7 g/dL (12.2-16.2); Lymphocytes # 2.4 K/mm3 (0.7-4.5); Mean Corpuscular HGB Conc 33.3 g/dL (31.8-35.4); Mean Corpuscular Hemoglobin 30.8 pg (27.0-31.2); Mean Corpuscular Volume 92.5 fl (81-99); Mean Platelet Volume 7.7 fl (7.4-10.4); Monocytes # 0.3 K/mm3 (0.1-1.0); Monocytes % 4.5 % (1.7-9.3); Neutrophils # 2.9 K/mm3 (1.8-7.8); Neutrophils % 50.8 % (37.0-80.0); Platelet Count 323 K/mm3 (142-424); Red Blood Count 4.13 M/mm3 (4.20-5.40); Red Cell Distribution Width 12.7 % (11.5-17.5); White Blood Count 5.7 K/mm3 (4.8-10.8)
[2019-10-22 08:43] LABS: Chloride 108 mmol/L (98-107); Potassium 3.9 mmoL/L (3.5-5.1); Sodium 137 mmol/L (136-145)
[2019-10-22 08:45] LABS: Alanine Aminotransferase 37 U/L (12-78); Aspartate Amino Transferase 43 U/L (14-36); Blood Urea Nitrogen 17 mg/dl (7-17); Creatinine Clearance Estimated 44 mL/min (50-200); Estimated Glomerular Filt Rate 61 ml/min (>60); GFR (African American) 74 ML/MIN (>60)
[2019-10-22 08:46] LABS: Albumin Level 4.1 g/dl (3.5-5.0); Albumin/Globulin Ratio 1.3 (1.1-1.8); Alkaline Phosphatase 167 U/L (38-126); Anion Gap 10.9 mEq/L (5-15); Bilirubin,Total 0.7 mg/dl (0.2-1.3); Calcium 9.6 mg/dl (8.4-10.2); Carbon Dioxide 22 mmol/L (22.0-30.0); Globulin 3.1 g/dL (1.3-3.2); Glucose 95 mg/dl (74-100); Total Protein,Serum 7.2 g/dl (6.3-8.2)
--- NOTE | 2019-10-22 09:04 | CT_ITS ---
PROCEDURE: CT CHEST W CON CLINCAL INDICATION: COLON CA Follow-up colon cancer COMPARISON: CT CHEST W CON from 04/19/2019 CT ABDOMEN PELVIS W CON from 10/22/2019 TECHNIQUE: IV Contrast: 75ml Optiray 350 Axial images obtained with sagittal and coronal reformats. All CT scans at the facility use one or more dose reduction, viz: automated exposure control, ma/kV adjustment per patient size (including targeted exams where dose is matched to indication, i.e. head), or iterative reconstruction technique. FINDINGS: HEART AND MEDIASTINAL STRUCTURES: Small bilateral thyroid nodules are noted. These are do not appear changed. No mediastinal or hilar mass or adenopathy. LUNGS AND PLEURAL SPACES: In the right lower lobe posteriorly there are several small nodular opacities best seen on series 4, image 41 with a tree in bud pattern. Similar small nodular tree in bud pattern is present in the left lower lobe laterally image number 52. These areas are not readily apparent on the previous exam. No effusions. BONY STRUCTURES: No acute bony abnormalities apparent. UPPER ABDOMEN: Please see abdomen report ADDITIONAL FINDINGS: No other significant abnormalities. IMPRESSION: There are several new small opacities in the right lower lobe and left lower lobe having a tree in bud pattern and may be infectious or inflammatory. Cannot exclude the possibility of malignancy/metastatic foci. Therefore, follow-up is suggested. No other changes apparent. Dictated by: Morris Stevenson MD 10/23/2019 06:48 Electronically signed by Morris Stevenson MD in [place] 10/23/2019 06:48
--- NOTE | 2019-10-22 09:04 | CT_ITS ---
PROCEDURE: CT ABDOMEN PELVIS W CON CLINICAL INDICATION: COLON CA Follow-up colon cancer COMPARISON: ABDPELW CT abdomen pelvis w con from 08/09/2018 CT ABDOMEN PELVIS W CON from 04/19/2019 TECHNIQUE: IV Contrast: 75ML OPTIRAY 350 Oral Contrast 450ml Redicat Axial images obtained with sagittal and coronal reformats. All CT scans at the facility use one or more dose reduction, viz: automated exposure control, ma/kV adjustment per patient size (including targeted exams where dose is matched to indication, i.e. head), or iterative reconstruction technique. FINDINGS: There is a small hiatal hernia. The liver, spleen, adrenal glands, pancreas, and kidneys have an unremarkable appearance. There is a small soft tissue density noted anterior to the inferior aspect of the head of the pancreas measuring 13 mm. This is nonspecific and not significantly changed best seen on image 44 series 5. There are postsurgical changes from prior left sided hemicolectomy with small Mary Jo's pouch. There is a left lower quadrant colostomy. There are few small lymph nodes in the retroperitoneum on the left which are not significantly changed measuring up to 1.3 by 0.9 cm. Small bowel dilatation once again noted in the pelvis similar to the previous exam and may represent postsurgical changes. There has been a prior hysterectomy. No abnormal fluid collections. No acute bony anomalies. IMPRESSION: 1. Overall no significant change from 04/19/2019. 2. Status post left sided hemicolectomy. There is persistent small bowel dilatation which may be postsurgical in nature. 3. Small retroperitoneal lymph nodes are unchanged. Small soft tissue density anterior to the head of the pancreas which could be due to a lymph node or even postsurgical changes unchanged. 4. No evidence of hepatic or adrenal metastasis Dictated by: oMrris Stevenson MD 10/23/2019 07:03 Electronically signed by Morris Stevenson MD in [place] 10/23/2019 07:03
[2019-10-23 13:53] LABS: CEA 1.3 ng/mL (0.0-4.7)
== END 2019-10-22 09:47 | disposition home or self-care (01) ==
LOC: RAD 08:25
PROVIDERS: PCP Family Medicine; Visit Provider Internal Medicine Medical Oncology
DX: C18.9 Malignant neoplasm of colon, unspecified (principal); K62.9 Disease of anus and rectum, unspecified
CPT/HCPCS: 71260; 74177; 80053; 82378; 85025; J1642; Q9967

== ENCOUNTER 2019-11-09 09:00 | Outpatient (CLI) | payer MEDICARE, SELFPAY ==
[2019-11-09 09:08] VITALS: BMI 25.2
[2019-11-09 09:36] LABS: Chloride 109 mmol/L (98-107); Potassium 4.1 mmoL/L (3.5-5.1); Sodium 139 mmol/L (136-145)
[2019-11-09 09:38] LABS: Alanine Aminotransferase 28 U/L (12-78); Aspartate Amino Transferase 34 U/L (14-36); Blood Urea Nitrogen 17 mg/dl (7-17); Creatinine Clearance Estimated 46 mL/min (50-200); Estimated Glomerular Filt Rate 61 ml/min (>60); GFR (African American) 74 ML/MIN (>60)
[2019-11-09 09:39] LABS: Albumin Level 3.9 g/dl (3.5-5.0); Albumin/Globulin Ratio 1.3 (1.1-1.8); Alkaline Phosphatase 118 U/L (38-126); Anion Gap 11.1 mEq/L (5-15); Bilirubin,Total 0.4 mg/dl (0.2-1.3); Calcium 9.3 mg/dl (8.4-10.2); Carbon Dioxide 23 mmol/L (22.0-30.0); Glucose 80 mg/dl (74-100); Total Protein,Serum 6.9 g/dl (6.3-8.2)
== END 2019-11-09 09:18 | disposition home or self-care (01) ==
LOC: INF 09:07
PROVIDERS: Visit Provider Internal Medicine Medical Oncology
DX: C18.9 Malignant neoplasm of colon, unspecified (principal); Z45.2 Encounter for adjustment and management of vascular access device
CPT/HCPCS: 80053; J1642

== ENCOUNTER 2019-12-21 08:53 | Outpatient (CLI) | payer MEDICARE, SELFPAY | END 2019-12-21 09:10 | disposition home or self-care (01) | LOC: INF 08:53 | PROVIDERS: Visit Provider Internal Medicine Medical Oncology | DX: Z45.2 Encounter for adjustment and management of vascular access device (principal); C18.9 Malignant neoplasm of colon, unspecified | CPT/HCPCS: 96523; J1642 ==

== ENCOUNTER → 2019-12-30 08:48 | Outpatient (CLI) | payer MEDICARE, SELFPAY ==
--- NOTE | 2019-12-30 08:51 | US_ITS ---
PROCEDURE: US LIVER CLINICAL INDICATION: ABN LIVER FUNCTION TEST Elevated liver function test, history of colon cancer COMPARISON: No exams were available for comparison FINDINGS: PANCREAS: Unremarkable. No obvious mass or abnormal fluid collection. No ductal dilatation LIVER: No focal liver lesions demonstrated. Homogeneous echogenicity. No intrahepatic biliary ductal dilatation evident. There is appropriate direction of blood flow within a non dilated portal vein RIGHT KIDNEY: Unremarkable. Normal size and echogenicity. No hydronephrosis GALLBLADDER: Prior cholecystectomy. Common bile duct is normal at 3 mm. The the IMPRESSION: Prior cholecystectomy otherwise negative. Unremarkable appearing liver Dictated b Morris Stevenson MD 12/30/2019 17:09 Morris Stevenson MD in [place] 12/30/2019 17:09
== END ==
PROVIDERS: PCP Family Medicine; Visit Provider Family Medicine
DX: R94.5 Abnormal results of liver function studies (principal)
CPT/HCPCS: 76705

== ENCOUNTER 2020-01-18 09:02 | Outpatient (CLI) | payer MEDICARE, SELFPAY | END 2020-01-18 09:20 | disposition home or self-care (01) | LOC: INF 09:02 | PROVIDERS: Visit Provider Internal Medicine Medical Oncology | DX: C18.9 Malignant neoplasm of colon, unspecified (principal); Z45.2 Encounter for adjustment and management of vascular access device | CPT/HCPCS: 96523; J1642 ==

== ENCOUNTER 2020-03-21 08:24 | Outpatient (CLI) | payer MEDICARE, SELFPAY | END 2020-03-21 08:40 | disposition home or self-care (01) | LOC: INF 08:24 | PROVIDERS: Visit Provider Internal Medicine Medical Oncology | DX: C18.9 Malignant neoplasm of colon, unspecified (principal); Z45.2 Encounter for adjustment and management of vascular access device | CPT/HCPCS: 96523; J1642 ==

== ENCOUNTER → 2020-05-04 08:10 | Outpatient (CLI) | payer MEDICARE, SELFPAY ==
[2020-05-04 08:17] VITALS: BMI 24.0
[2020-05-04 08:42] LABS: Basophils % 0.4 % (0.1-2.0); Eosinophils # 0.1 K/mm3 (0.0-0.4); Eosinophils % 0.7 % (0.1-12.0); Hematocrit 39.4 % (37.0-47.0); Lymphocytes % 26.2 % (10-50); Mean Corpuscular HGB Conc 32.9 g/dL (31.8-35.4); Mean Corpuscular Hemoglobin 30.3 pg (27.0-31.2); Mean Platelet Volume 8.1 fl (7.4-10.4); Monocytes # 0.4 K/mm3 (0.1-1.0); Monocytes % 4.6 % (1.7-9.3); Neutrophils # 5.2 K/mm3 (1.8-7.8); Neutrophils % 68.1 % (37.0-80.0); Platelet Count 298 K/mm3 (142-424); Red Blood Count 4.28 M/mm3 (4.20-5.40); Red Cell Distribution Width 13.3 % (11.5-17.5); White Blood Count 7.6 K/mm3 (4.8-10.8)
[2020-05-04 08:46] LABS: Chloride 106 mmol/L (98-107)
[2020-05-04 08:47] LABS: Potassium 3.7 mmoL/L (3.5-5.1); Sodium 137 mmol/L (136-145)
[2020-05-04 08:49] LABS: Alanine Aminotransferase 19 U/L (12-78); Alkaline Phosphatase 108 U/L (38-126); Aspartate Amino Transferase 28 U/L (14-36); Bilirubin,Total 0.5 mg/dl (0.2-1.3); Blood Urea Nitrogen 9 mg/dl (7-17); Creatinine Clearance Estimated 45 mL/min (50-200); Estimated Glomerular Filt Rate 61 ml/min (>60); GFR (African American) 74 ML/MIN (>60)
[2020-05-04 08:50] LABS: Albumin Level 3.9 g/dl (3.5-5.0); Albumin/Globulin Ratio 1.3 (1.1-1.8); Anion Gap 9.7 mEq/L (5-15); Calcium 9.4 mg/dl (8.4-10.2); Carbon Dioxide 25 mmol/L (22.0-30.0); Glucose 104 mg/dl (74-100); Total Protein,Serum 6.9 g/dl (6.3-8.2)
== END ==
PROVIDERS: Visit Provider Internal Medicine Medical Oncology
DX: C18.9 Malignant neoplasm of colon, unspecified (principal); Z45.2 Encounter for adjustment and management of vascular access device
CPT/HCPCS: 80053; 85025; J1642

== ENCOUNTER 2020-06-02 08:25 | Outpatient (CLI) | payer MEDICARE, SELFPAY | END 2020-06-02 08:45 | disposition home or self-care (01) | LOC: INF 08:25 | PROVIDERS: Visit Provider Internal Medicine Medical Oncology | DX: C18.9 Malignant neoplasm of colon, unspecified (principal); Z45.2 Encounter for adjustment and management of vascular access device | CPT/HCPCS: 96523; J1642 ==

== ENCOUNTER 2020-06-30 08:33 | Outpatient (CLI) | payer MEDICARE, SELFPAY | END 2020-06-30 08:50 | disposition home or self-care (01) | LOC: INF 08:33 | PROVIDERS: Visit Provider Internal Medicine Medical Oncology | DX: Z45.2 Encounter for adjustment and management of vascular access device (principal); C18.9 Malignant neoplasm of colon, unspecified | CPT/HCPCS: 96523; J1642 ==

== ENCOUNTER 2020-09-05 08:19 | Outpatient (CLI) | payer MEDICARE, SELFPAY | END 2020-09-05 08:30 | disposition home or self-care (01) | LOC: INF 08:19 | PROVIDERS: Visit Provider Internal Medicine Medical Oncology | DX: Z45.2 Encounter for adjustment and management of vascular access device (principal); C18.9 Malignant neoplasm of colon, unspecified | CPT/HCPCS: 96523; J1642 ==

== ENCOUNTER 2020-10-03 08:15 | Outpatient (CLI) | payer MEDICARE, SELFPAY | END 2020-10-03 08:28 | disposition home or self-care (01) | LOC: INF 08:17 | PROVIDERS: Visit Provider Internal Medicine Medical Oncology | DX: Z45.2 Encounter for adjustment and management of vascular access device (principal) | CPT/HCPCS: 96523; J1642 ==

== ENCOUNTER 2020-11-03 08:32 | Outpatient (CLI) | payer MEDICARE, SELFPAY ==
[2020-11-03 08:33] VITALS: BMI 24.3
[2020-11-03 08:55] LABS: Basophils % 0.7 % (0.1-2.0); Eosinophils # 0.1 K/mm3 (0.0-0.4); Eosinophils % 0.9 % (0.1-12.0); Hematocrit 39.6 % (37.0-47.0); Hemoglobin 13.2 g/dL (12.2-16.2); Lymphocytes % 33.2 % (10-50); Mean Corpuscular HGB Conc 33.3 g/dL (31.8-35.4); Mean Corpuscular Hemoglobin 30.3 pg (27.0-31.2); Mean Corpuscular Volume 91.1 fl (81-99); Monocytes # 0.3 K/mm3 (0.1-1.0); Monocytes % 4.5 % (1.7-9.3); Neutrophils # 3.7 K/mm3 (1.8-7.8); Neutrophils % 60.8 % (37.0-80.0); Platelet Count 303 K/mm3 (142-424); Red Blood Count 4.34 M/mm3 (4.20-5.40); Red Cell Distribution Width 12.8 % (11.5-17.5); White Blood Count 6.1 K/mm3 (4.8-10.8)
[2020-11-03 08:56] LABS: Chloride 107 mmol/L (98-107); Potassium 3.7 mmoL/L (3.5-5.1); Sodium 138 mmol/L (136-145)
[2020-11-03 08:58] LABS: Alanine Aminotransferase 19 U/L (12-78); Aspartate Amino Transferase 25 U/L (14-36); Blood Urea Nitrogen 11 mg/dl (7-17); Creatinine Clearance Estimated 45 mL/min (50-200); Estimated Glomerular Filt Rate 54 ml/min (>60); GFR (African American) 65 ML/MIN (>60)
[2020-11-03 08:59] LABS: Albumin Level 4.1 g/dl (3.5-5.0); Albumin/Globulin Ratio 1.4 (1.1-1.8); Alkaline Phosphatase 80 U/L (38-126); Anion Gap 10.7 mEq/L (5-15); Bilirubin,Total 0.5 mg/dl (0.2-1.3); Calcium 9.3 mg/dl (8.4-10.2); Carbon Dioxide 24 mmol/L (22.0-30.0); Glucose 102 mg/dl (74-100); Total Protein,Serum 7.1 g/dl (6.3-8.2)
[2020-11-04 10:11] LABS: CEA 4.6 ng/mL (0.0-4.7)
== END 2020-11-03 10:00 | disposition home or self-care (01) ==
LOC: INF 08:32
PROVIDERS: Visit Provider Internal Medicine Medical Oncology
DX: C18.9 Malignant neoplasm of colon, unspecified (principal); K62.9 Disease of anus and rectum, unspecified; Z45.2 Encounter for adjustment and management of vascular access device
CPT/HCPCS: 80053; 82378; 85025; J1642

== ENCOUNTER 2020-12-08 08:20 | Outpatient (CLI) | payer MEDICARE, SELFPAY | END 2020-12-08 09:00 | disposition home or self-care (01) | LOC: INF 08:38 | PROVIDERS: Visit Provider Internal Medicine Medical Oncology | DX: Z45.2 Encounter for adjustment and management of vascular access device (principal) | CPT/HCPCS: 96523; J1642 ==

== ENCOUNTER 2021-01-17 08:29 | Outpatient (CLI) | payer MEDICARE, SELFPAY | END 2021-01-17 09:08 | disposition home or self-care (01) | LOC: INF 08:31 | PROVIDERS: PCP Family Medicine; Visit Provider Internal Medicine Medical Oncology | DX: Z45.2 Encounter for adjustment and management of vascular access device (principal) | CPT/HCPCS: 96523; J1642 ==

== ENCOUNTER 2021-02-28 08:53 | Outpatient (CLI) | payer MEDICARE, SELFPAY ==
[2021-02-28 09:06] VITALS: BMI 24.4
--- NOTE | 2021-02-28 09:22 | CT_ITS ---
PROCEDURE: CT ABDOMEN PELVIS W CON CLINICAL INDICATION: MALIGNANT NEOPLASM OF SIGMOID COLON COMPARISON: CT CT ABDOMEN PELVIS W CON from 10/22/2019 TECHNIQUE: IV Contrast: 75ML Isovue 370 Oral Contrast None Axial images obtained with sagittal and coronal reformats. All CT scans at the facility use one or more dose reduction, viz: automated exposure control, ma/kV adjustment per patient size (including targeted exams where dose is matched to indication, i.e. head), or iterative reconstruction technique. FINDINGS: LOWER THORAX: No acute finding ABDOMEN & PELVIS: Prior cholecystectomy. No focal liver lesion identified. The spleen, pancreas, and right kidney have an unremarkable appearance. The left adrenal gland is prominent but maintains an adrenal form shape not significantly changed. There has been interval development of moderate to severe left hydronephrosis and hydroureter. Ureter is dilated to the L4-5 level. At that point there is an area of soft tissue density which appears to be within the ureter or could be related to an extrinsic soft tissue lesion. Just inferior to this area there is a 2 by 1.5 cm area of soft tissue density anterior medial to the left common iliac artery. A mesenteric metastatic focus is considered. Lack of oral contrast somewhat limits the exam with multiple unopacified bowel loops adjacent to this area. There is a small lymph node in the left periaortic region at the level of the renal hilum just posterior to the left renal vein which has increased in size since the previous study measuring 1.4 cm. Status post hemicolectomy with resection of the sigmoid colon with a Mary Jo's pouch. There are few dilated loops of bowel in the pelvic region at the area of surgical clips on the right and could be due to atonic loops. There is a left lower quadrant colostomy. It now contains a loop of mildly prominent small bowel with fecal a material within the small bowel. There is no evidence of obstruction proximal to this region. No bony metastasis identified. Small sclerotic stable focus noted in the right femoral head IMPRESSION: 1. Interval development of moderate to severe left hydronephrosis and proximal hydroureter which may be related to extrinsic compression from a focal soft tissue mass versus an intrinsic ureteral soft tissue lesion. Retrograde ureteroscopy may provide further evaluation. 2. Small soft tissue mass along the anterior medial aspect of the left iliac artery possibly related to a mesenteric metastatic focus. There are few small retroperitoneal lymph nodes as well as a mildly prominent node in the left periaortic region which is increased in size from the previous exam. These findings are suspicious for metastatic disease. 3. Status post hemicolectomy of the sigmoid colon with left lower quadrant colostomy. There is a herniated loop of small bowel within the colostomy site with mild dilatation of that loop containing feculent appearing material. No evidence of proximal obstruction. Dictated by: Morris Stevenson MD 03/01/2021 10:02 Morris Stevenson MD in [place] 03/01/2021 10:02
--- NOTE | 2021-02-28 09:22 | CT_ITS ---
PROCEDURE: CT CHEST W CON CLINCAL INDICATION: MALIGNANT NEOPLASM OF SIGMOID COLON Colon cancer follow-up COMPARISON: CT CT CHEST W CON from 10/22/2019 TECHNIQUE: IV Contrast: 75ml Isovue 370 Axial images obtained with sagittal and coronal reformats. All CT scans at the facility use one or more dose reduction, viz: automated exposure control, ma/kV adjustment per patient size (including targeted exams where dose is matched to indication, i.e. head), or iterative reconstruction technique. FINDINGS: HEART AND MEDIASTINAL STRUCTURES: There are few small nodules within the thyroid gland nonspecific and unchanged. No mediastinal or hilar mass or adenopathy. Right-sided MediPort catheter is present from the subclavian approach with tip in the region of the superior vena cava. LUNGS AND PLEURAL SPACES: COPD changes. Calcified granuloma left upper lobe. Previously noted nodular opacities in the right lower lobe and left lower lobe are no longer apparent. No new nodules evident. No effusions or infiltrates. BONY STRUCTURES: Mild thoracic scoliosis convex right with vertebral body fusion at T10-T11 with multilevel degenerative disc disease. There is mild retrolisthesis of T12 on L1 of 6 mm not significantly changed. UPPER ABDOMEN: See abdomen report ADDITIONAL FINDINGS: No other significant abnormalities. IMPRESSION: No convincing evidence thoracic metastasis. Previously noted small nodular opacities in the lower lobes have resolved and mid been due to infectious or inflammatory etiology. Dictated by: Morris Stevenson MD 03/01/2021 09:42 Morris Stevenson MD in [place] 03/01/2021 09:42
[2021-02-28 09:33] LABS: Blood Urea Nitrogen 9 mg/dl (7-17); Creatinine Clearance Estimated 36 mL/min (50-200); Estimated Glomerular Filt Rate 44 ml/min (>60); GFR (African American) 53 ML/MIN (>60)
== END 2021-02-28 10:59 | disposition home or self-care (01) ==
PROVIDERS: PCP Family Medicine; Visit Provider Surgery
DX: C18.7 Malignant neoplasm of sigmoid colon (principal)
CPT/HCPCS: 71260; 74177; 82565; 84520; J1642; Q9967

== ENCOUNTER → 2021-03-13 10:50 | Outpatient (CLI) | payer MEDICARE, SELFPAY | PROVIDERS: Visit Provider Urology | DX: N13.30 Unspecified hydronephrosis (principal); Z01.812 Encounter for preprocedural laboratory examination; Z11.52 Encounter for screening for COVID-19 | CPT/HCPCS: C9803; U0003; U0005 ==

== ENCOUNTER 2021-03-16 07:44 | Day surgery (SDC) | payer MEDICARE, SELFPAY ==
[2021-03-14 12:27] VITALS: BMI 20.9
[2021-03-16] VITALS (10 sets, daily range): BP systolic 91–123; BP diastolic 53–78; PULSE 81–104; RESP 18; TEMP 36.1–36.5; O2SAT 98–100
--- NOTE | 2021-03-16 | XR_ITS ---
PROCEDURE: XR KUB CLINICAL INDICATION: URETEROSCOPY COMPARISON: CR KUB XR KUB from 07/06/2018 FINDINGS: Fluoroscopy time: 1.49 minutes Single image submitted with the C-arm shows a left ureteral stent in place with the distal aspect curled in the region of the urinary bladder. The proximal aspect of the stent is not covered on this image. IMPRESSION: Status post stent placement with fluoroscopic guidance Dictated by: Morris Stevenson MD 03/19/2021 07:28 Morris Stevenson MD in [place] 03/19/2021 07:28
--- NOTE | 2021-03-16 08:06 | P.PN_ITS ---
[facility] Anesthesia Checklist - Patient Identification Patient Identification: Arm Band - Structural Data Admitted From: Home Planned Operative Procedure/s: Ureteroscopy, stent placement Consent for Planned Operative Procedure(s) Verified: Yes - NPO Status Verified Time NPO: 00:00 - Additional verifications Anesthesia Reactions: No Hx Blood Transfusions: No Blood Transfusion Reaction: No - Airway Assessment C-Spine Mobility Assessed: Yes TMJ Mobility Assessed: Yes Dentition: Poor Dentition - Neurological Assessment Level of Consciousness: Awake Hx Seizures: No Numbness or tingling in extremities: No - Anesthesia Plan Anesthesia Risk discussed: Yes Anesthesia Plan: Verified ASA Class: III Anesthesia Type: General [facility] History I have reviewed the patient's past medical history: Yes Medical History: Reports:: Anxiety, Cancer (COLON), Gastroesophageal Reflux Disease(GERD) Denies:: Diabetes Mellitus Type 1, Diabetes Mellitus Type 2, Internal P acemaker, Lung Disease, MRSA, Seizures *Have you ever received a pneumonia vaccine?: Yes *Have you received a flu vaccine this season?: Yes Other Medical History: Reports: Anemia, Chemotherapy. Denies: Blood Transfusion Reaction Anesthesia experience/problems:: PONV Other Surgeries: Yes: No Previous Surgery, Cancer Surgery, Cholecystectomy, Colonoscopy, Colon Resection, Colostomy, Hysterectomy-Total, Other. No: Pacemaker Amputation: No Fractures: No - *Social History Last grade of school completed: High school graduate Smoking Status: Never smoker # Packs/Day (cigarettes): 0 Alcohol Intake: never Alcohol Intake Frequency:: other Substance Use Type: denies use *Occupational Status:: retired Housing: house Household Members: spouse *Travel in the last 8 weeks: None - Psychiatric History Pschychiatric History:: Reports:: Anxiety Family Hx:: Diabetes, Heart Attack, Hypertension, Stroke
--- NOTE | 2021-03-16 10:25 | P.PN_ITS ---
[facility] Anesthesia Record Part I Intake, IV Amount: 500 Estimated blood loss (mL): 0 Urine output (mL): 0 Blood Pressure: 91/55 SaO2: 100 Pulse Rate: 104 Respiratory Rate: 18 Temperature: 97 F Patient is:: Drowsy Stable to PACU at:: 10:25
--- NOTE | 2021-03-16 13:06 | P.OP_ITS ---
Date of procedure: 03/16/21 Pre-op Diagnosis:: Left hydronephrosis Post-op Diagnosis:: Left hydronephrosis, left ureteral obstruction Procedure performed:: Left ureteroscopy, left ureteral stent placement Surgeon:: Edwardo Greene MD ART SALES CONSULTANT:: Wagner Neal Anesthesia: LMA Estimated blood loss (mL): 0 Clinical Note:: Patient is a 75-year-old white female with history of colon cancer. Recent CT scan showed left hydronephrosis with dilated ureter to the L4 level. There is also soft tissue mass at this level. Hydronephrosis is likely extrinsic and p atient presents today for urologic evaluation. Operative findings:: The left ureter at the point of obstruction was too narrow to allow the scope to pass into the order through it. There is no evidence of papillary change below the point of obstruction. The left ureteral stent was placed without difficulty. Operative note:: Patient taken to the operating room after informed consent was obtained. He was placed on the operating table in the supine position and general anesthesia administered. Preoperative antibiotics and sequential compression devices placed. She was then placed into the dorsal lithotomy position prepped draped in a standard surgical fashion. The urethral meatus was a little stenotic so the urethra was dilated to 26 Lithuanian. Gently. The 22 Lithuanian cystoscope then passed into the bladder without difficulty and the bladder examined in a systematic fashion. There is no evidence of bladder tumors, mucosal abnormali ties, diverticula, stones or trabeculation. The ureteral orifices in their normal anatomic position. A 5 Lithuanian ureteral catheter was passed into the left ureteral orifice and a guidewire then passed through the ureteral catheter and into the left renal pelvis without difficulty. The cystoscope then removed and our flexible ureteroscope was passed over the guidewire and proximally to the level of resistance. The scope was unable to be passed by an area in the upper ureter corresponding to the point of obstruction on the CT scan. There is no evidence of any papillary change or any bleeding associated with the manipulation. After thorough attempts to try to pass the scope it was aborted and the ureteroscope removed. The cystoscope was passed back into the bladder and a 4.8 x 24 Lithuanian stent was passed over the guidewire and under fluoroscopy the wire was removed. There was a little redundancy of the stent proximally to the patient's small size. There was significant urine output through the stent after placement. String was removed and the bladder drained. Urojet placed into the urethra. Patient tolerated the procedure well there are no complications. Condition: stable Disposition: PACU Specimens:: None Complications:: None
--- NOTE | 2021-03-16 13:48 | SUR.PHASEI ---
1025- colostomy noted lower left abd. WNL
--- NOTE | 2021-03-16 14:13 | HMH.ANESII ---
[facility] Anesthesia Record Part II Discharge Time: 10:55 Destination: Surgical Day Care (OP Surgery) PACU nurse assessment reviewed?: Yes Patient Condition:: Good Anesthesia Complications:: None Swallowing reflex intact?: Yes Cyanosis?: No Blood Pressure: 115/63 Pulse Rate: 86 Temperature: 97.1 F Mental Status: Alert & Oriented Pain level:: 0 Nausea and/or vomitting:: None Intake, IV Amount: 0
== END 2021-03-16 11:25 | disposition home or self-care (01) ==
LOC: OR 07:46
PROVIDERS: PCP Family Medicine; Visit Provider Urology
PROC: 0TJ98ZZ Inspection of Ureter, Via Natural or Artificial Opening Endoscopic (ICD-10-PCS; CPT 52351; principal; 2021-03-16 09:15)
DX: N13.1 Hydronephrosis with ureteral stricture, not elsewhere classified; F41.9 Anxiety disorder, unspecified; K21.9 Gastro-esophageal reflux disease without esophagitis; D64.9 Anemia, unspecified; Z90.49 Acquired absence of other specified parts of digestive tract; Z85.038 Personal history of other malignant neoplasm of large intestine; Z83.3 Family history of diabetes mellitus; Z82.49 Family history of ischemic heart disease and other diseases of the circulatory system; Z82.3 Family history of stroke
CPT/HCPCS: 52351; 74018; 76000; 96374; C2617; J1642; J2405

== ENCOUNTER 2021-04-03 08:23 | Outpatient (CLI) | payer MEDICARE, SELFPAY ==
[2021-04-03] VITALS (8 sets, daily range): BP systolic 117–136; BP diastolic 58–75; PULSE 60–78; RESP 18; TEMP 36.4; O2SAT 99–100; BMI 21.4
[2021-04-03 08:57] LABS: Basophils % 0.8 % (0.1-2.0); Eosinophils # 0.1 K/mm3 (0.0-0.4); Eosinophils % 1.9 % (0.1-12.0); Hematocrit 36.6 % (37.0-47.0); Hemoglobin 12.3 g/dL (12.2-16.2); Lymphocytes # 1.4 K/mm3 (0.7-4.5); Mean Corpuscular HGB Conc 33.5 g/dL (31.8-35.4); Mean Corpuscular Hemoglobin 30.5 pg (27.0-31.2); Mean Corpuscular Volume 90.8 fl (81-99); Mean Platelet Volume 8.2 fl (7.4-10.4); Monocytes # 0.3 K/mm3 (0.1-1.0); Monocytes % 5.6 % (1.7-9.3); Neutrophils # 3.7 K/mm3 (1.8-7.8); Neutrophils % 66.8 % (37.0-80.0); Platelet Count 403 K/mm3 (142-424); Red Blood Count 4.03 M/mm3 (4.20-5.40); Red Cell Distribution Width 13.6 % (11.5-17.5); White Blood Count 5.6 K/mm3 (4.8-10.8)
[2021-04-03 09:05] LABS: Alanine Aminotransferase 109 U/L (12-78); Albumin Level 3.9 g/dl (3.5-5.0); Albumin/Globulin Ratio 1.4 (1.1-1.8); Alkaline Phosphatase 87 U/L (38-126); Anion Gap 10.2 mEq/L (5-15); Aspartate Amino Transferase 57 U/L (14-36); Bilirubin,Total 0.7 mg/dl (0.2-1.3); Blood Urea Nitrogen 7 mg/dl (7-17); Calcium 9.3 mg/dl (8.4-10.2); Carbon Dioxide 27 mmol/L (22.0-30.0); Chloride 95 mmol/L (98-107); Creatinine Clearance Estimated 38 mL/min (50-200); Estimated Glomerular Filt Rate 54 ml/min (>60); GFR (African American) 65 ML/MIN (>60); Globulin 2.7 g/dL (1.3-3.2); Glucose 116 mg/dl (74-100); Potassium 3.2 mmoL/L (3.5-5.1); Sodium 129 mmol/L (136-145); Total Protein,Serum 6.6 g/dl (6.3-8.2)
== END 2021-04-03 13:10 | disposition home or self-care (01) ==
LOC: INF 08:24
PROVIDERS: PCP Family Medicine; Visit Provider Internal Medicine Medical Oncology
DX: Z51.11 Encounter for antineoplastic chemotherapy (principal); C18.9 Malignant neoplasm of colon, unspecified
CPT/HCPCS: 80053; 85025; 96411; 96413; 96415; 96417; J0640; J9190; J9206; Q0166

== ENCOUNTER 2021-04-19 13:21 | Outpatient (CLI) | payer MEDICARE, SELFPAY ==
[2021-04-19 13:32] VITALS: BMI 20.2
[2021-04-19 13:45] VITALS: BP 78/50; PULSE 87; RESP 16; TEMP 36.4; O2SAT 100
[2021-04-19 14:01] LABS: Basophils % 0.5 % (0.1-2.0); Eosinophils % 0.7 % (0.1-12.0); Hematocrit 33.5 % (37.0-47.0); Hemoglobin 11.7 g/dL (12.2-16.2); Lymphocytes # 1.2 K/mm3 (0.7-4.5); Lymphocytes % 22.4 % (10-50); Mean Corpuscular Hemoglobin 30.4 pg (27.0-31.2); Mean Corpuscular Volume 86.7 fl (81-99); Mean Platelet Volume 8.1 fl (7.4-10.4); Monocytes # 0.3 K/mm3 (0.1-1.0); Monocytes % 6.3 % (1.7-9.3); Neutrophils # 3.7 K/mm3 (1.8-7.8); Neutrophils % 70.1 % (37.0-80.0); Platelet Count 473 K/mm3 (142-424); Red Blood Count 3.87 M/mm3 (4.20-5.40); Red Cell Distribution Width 14.2 % (11.5-17.5); White Blood Count 5.3 K/mm3 (4.8-10.8)
[2021-04-19 14:09] LABS: Alanine Aminotransferase 121 U/L (12-78); Albumin Level 3.2 g/dl (3.5-5.0); Albumin/Globulin Ratio 1.2 (1.1-1.8); Alkaline Phosphatase 157 U/L (38-126); Aspartate Amino Transferase 46 U/L (14-36); Bilirubin,Total 0.3 mg/dl (0.2-1.3); Blood Urea Nitrogen 9 mg/dl (7-17); Calcium 8.8 mg/dl (8.4-10.2); Carbon Dioxide 23 mmol/L (22.0-30.0); Chloride 101 mmol/L (98-107); Creatinine Clearance Estimated 30 mL/min (50-200); Estimated Glomerular Filt Rate 44 ml/min (>60); GFR (African American) 53 ML/MIN (>60); Globulin 2.7 g/dL (1.3-3.2); Glucose 138 mg/dl (74-100); Sodium 128 mmol/L (136-145); Total Protein,Serum 5.9 g/dl (6.3-8.2)
--- NOTE | 2021-04-19 14:28 | PC.NURSE ---
Alexsandra Iqbal called RN at 1420 to report k-3.0. RN repeated and verified pt name, , and lab value. Results called to Dr. Adriane Carreno md ordered a fluid bolus.
[2021-04-19 15:06] VITALS: BP 89/56; PULSE 91; RESP 18; TEMP 36.3; O2SAT 100
[2021-04-19 15:16] VITALS: BP 98/61; PULSE 95; RESP 16; O2SAT 99
[2021-04-19 15:26] VITALS: BP 99/56; PULSE 89; RESP 16; O2SAT 99
[2021-04-19 15:40] VITALS: BP 100/57; PULSE 85; RESP 18; TEMP 36.3; O2SAT 100
== END 2021-04-19 15:45 | disposition home or self-care (01) ==
LOC: INF 13:21
PROVIDERS: PCP Family Medicine; Visit Provider Internal Medicine Medical Oncology
DX: C18.9 Malignant neoplasm of colon, unspecified (principal)
CPT/HCPCS: 80053; 85025; 96360; J1642

== ENCOUNTER 2021-04-24 08:22 | Outpatient (CLI) | payer MEDICARE, SELFPAY ==
[2021-04-24] VITALS (12 sets, daily range): BP systolic 107–120; BP diastolic 57–84; PULSE 81–116; RESP 20; TEMP 36.4; O2SAT 99–100; BMI 20.1
[2021-04-24 09:08] LABS: Alanine Aminotransferase 41 U/L (12-78); Albumin Level 2.9 g/dl (3.5-5.0); Alkaline Phosphatase 141 U/L (38-126); Anion Gap 8.7 mEq/L (5-15); Aspartate Amino Transferase 24 U/L (14-36); Bilirubin,Total 0.8 mg/dl (0.2-1.3); Blood Urea Nitrogen 13 mg/dl (7-17); Calcium 8.6 mg/dl (8.4-10.2); Carbon Dioxide 22 mmol/L (22.0-30.0); Chloride 96 mmol/L (98-107); Creatinine Clearance Estimated 30 mL/min (50-200); Estimated Glomerular Filt Rate 44 ml/min (>60); GFR (African American) 53 ML/MIN (>60); Globulin 2.8 g/dL (1.3-3.2); Glucose 117 mg/dl (74-100); Sodium 124 mmol/L (136-145); Total Protein,Serum 5.7 g/dl (6.3-8.2)
[2021-04-24 09:11] LABS: Potassium 2.7 mmoL/L (3.5-5.1)
--- NOTE | 2021-04-24 09:23 | PC.NURSE ---
Angela Godoy called RN at 0908 to report potassium 2.7. RN repeated and verified pt name, , and lab value. Result called to Dr. Yocasta Carreno, no new orders noted at this time.
== END 2021-04-24 14:41 | disposition home or self-care (01) ==
LOC: INF 08:23
PROVIDERS: PCP Family Medicine; Visit Provider Internal Medicine Medical Oncology
DX: Z51.11 Encounter for antineoplastic chemotherapy (principal); C18.9 Malignant neoplasm of colon, unspecified; E87.6 Hypokalemia
CPT/HCPCS: 80053; 96366; 96367; 96411; 96413; 96415; 96417; J0640; J9190; J9206; Q0166

== ENCOUNTER 2021-04-26 10:09 | Emergency (ER) | payer MEDICARE, SELFPAY ==
[2021-04-26 10:11] VITALS: BP 118/58; PULSE 95; RESP 16; TEMP 37.1; O2SAT 99; BMI 20.9
--- NOTE | 2021-04-26 10:48 | XR_ITS ---
PROCEDURE: XR CHEST 2V CLINICAL HISTORY: fever, cough COMPARISON: CR [id number] XR chest portable from 07/23/[address] CHEST W CON from 02/28/[address] ABDOMEN PELVIS W CON from 02/28/2021 CR XR KUB from 03/16/2021 FINDINGS: The cardiomediastinal silhouette and pulmonary vascularity are within normal limits. COPD changes. Right-sided MediPort catheter is present from a subclavian approach with tip in the region the SVC. There is a bandlike area of increased density in the left perihilar region consistent with an area of pneumonia and/or volume loss present in the left upper lobe anteriorly along the major fissure.. There is some minimal blunting of the posterior costophrenic sulci bilaterally which could be a reflection of the hyperinflation or trace bilateral effusions. No acute bony abnormalities. Left ureteral stent noted. IMPRESSION: Increased density left perihilar region consistent with an area of pneumonia and or volume loss with possible trace bilateral effusions with underlying COPD Dictated by: Morris Stevenson MD 04/26/2021 11:24 Morris Stevenson MD in OV 04/26/2021 11:24
--- NOTE | 2021-04-26 10:50 | HMH.EDGENADL ---
ED Disposition Clinical Impression: Hyponatremia Pneumonia Qualifiers: Pneumonia type: due to unspecified organism Laterality: left Lung location: upper lobe of lung Qualified Code(s): J18.9 - Pneumonia, unspecified organism Disposition: Home, Self-Care Condition on Discharge: Good Instructions: DI for Pneumonia -- Adult, DI for Hyponatremia Additional Instructions: Take antibiotics as prescribed, begin antibiotics tomorrow. See your physician as soon as possible for further evaluation. Return immediately if you have an uncontrollable fever greater than 102 degrees, difficulty breathing or shortness of breath, persistent vomiting, or severe chest pain. Dr. Carreno's office will contact you tomorrow for follow-up. Prescriptions: Cefdinir [Omnicef 300mg Capsule] 300 mg PO BID #20 cap Transmission Status: Received by [facility] Azithromycin [Zithromax 250mg tab] 250 mg PO DAILY #4 tab Transmission Status: Received by [facility] Referrals: Shonna Desir MD [Primary Care Provider] - - Critical Care Critical Care Time: No Attestation: On 04/26/21, the high probability of a clinically significant, sudden or life threatening deterioration of the following system(s) required my full and direct attention, intervention and personal management. The time I documented below is in addition to time spent performing reported procedures but includes the following listed in this critical care notation. Medical Decision Making - [place] Inquiry Pt receiving controlled substance: No Vital Signs: 04/26/21 10:11 04/26/21 11:07 Temperature 98.8 F Temperature Source Oral Pulse Rate 78 Pulse Rate [Right] 95 H Respiratory Rate 16 16 Blood Pressure 116/87 Blood Pressure [Right Arm] 118/58 L Blood Pressure Mean [Right Arm] 78 Blood Pressure Source Automatic Cuff Blood Pressure Source [Right Arm] Automatic Cuff Blood Pressure Position Sitting Blood Pressure Position [Right Arm] Sitting 02 Sat by Pulse Oximetry 99 100 Oxygen Delivery Method Room Air Room Air - Lab Data Lab Results 04/26/21 10:22: SARS-CoV-2 (PCR) Not detected, Influenza A Untype (PCR) Not detected, Influenza Type B (PCR) Not detected 04/26/21 11:07: WBC 12.3 H, RBC 3.24 L, Hgb 9.9 L, Hct 28.9 L, MCV 89.1, MCH 30.4, MCHC 34.1, RDW 14.5, Plt Count 381, MPV 7.7, Neut % (Auto) 95.2 H, Lymph % (Auto) 2.7 L, Schley % (Auto) 1.1 L, Eos % (Auto) 1.0, Baso % (Auto) 0.0 L, Neut # (Auto) 11.7 H, Lymph # (Auto) 0.3 L, Schley # (Auto) 0.1, Eos # (Auto) 0.1, Baso # (Auto) 0.0, Total Counted 100, Neutrophils % (Manual) 97 H, Lymphocytes % (Manual) 3 L, Platelet Estimate Normal, Poikilocytosis 2+ 04/26/21 11:07: Sodium 121 L, Potassium 3.4 L D, Chloride 95 L, Carbon Dioxide 24, Anion Gap 5.4, BUN 16, Creatinine 1.20 H, Estimated Creat Clear 31, Estimated GFR 44 L, Est GFR ( Amer) 53 L, Glucose 117 H, Calcium 8.4, Total Bilirubin 0.6, AST 38 H D, ALT 36, Alkaline Phosphatase 117, Total Protein 5.4 L, Albumin 2.6 L, Globulin 2.8, Albumin/Globulin Ratio 0.9 L 04/26/21 11:07: Lactate 1.0 04/26/21 11:07: Urine Color Yellow, Urine Appearance Clear, Urine pH 6.0, Ur Specific [place] 1.020, Urine Protein 1+, Urine Glucose (UA) Negative, Urine Ketones Negative, Urine Blood 3+, Urine Nitrate Negative, Urine Bilirubin Negative, Urine Urobilinogen 0.2, Ur Leukocyte Esterase Negative, Urine RBC 20-50, Urine WBC 3-5, Ur Squamous Epith Cells 3-5, Urine Bacteria 1+ Result diagrams: 04/26/21 11:07 04/26/21 11:07 Orders (Tests/Meds): ED MEDICATIONS Generic Name Dose Route Start Last Admin Trade Name Freq PRN Reason Stop Dose Admin Ceftriaxone Sodium 1 gm/ 50 mls @ 100 mls/hr 04/26/21 12:00 04/26/21 12:06 Sodium Chloride IV 05/10/21 11:59 100 mls/hr Q24H JIAN Administration Azithromycin 500 mg/ Sodium 250 mls @ 250 mls/hr 04/26/21 12:00 Chloride IV 05/10/21 11:59 Q24H JIAN Discontinued Medications Generic Name Dose Route Start L
[2021-04-26 10:53] VITALS: BMI 20.9
[2021-04-26 10:54] LABS: Coronavirus 19, PCR Not Detected (NotDetected); Influenza A, PCR Not Detected (NotDetected); Influenza B, PCR Not Detected (NotDetected)
[2021-04-26 11:07] VITALS: BP 116/87; PULSE 78; RESP 16; O2SAT 100
--- NOTE | 2021-04-26 11:07 | PC.NURSE ---
Called and asked Megan Orantes RN from infusion to come down and help me with the chemo. Megan came down and stopped the chemo infusion and disposed of it. Flushed port, which was left accessed so we could draw blood for lab work. Megan advised she would call Dr. Carreno office and let them know what was going on and have them give us a call.
--- NOTE | 2021-04-26 11:09 | PC.NURSE ---
Pt going for xray
[2021-04-26 11:19] LABS: Microscopic, Urine URINE MICROSCOPIC (MICROSCOPIC)
[2021-04-26 11:24] LABS: Eosinophils # 0.1 K/mm3 (0.0-0.4); Hematocrit 28.9 % (37.0-47.0); Hemoglobin 9.9 g/dL (12.2-16.2); Lymphocytes # 0.3 K/mm3 (0.7-4.5); Lymphocytes % 2.7 % (10-50); Mean Corpuscular HGB Conc 34.1 g/dL (31.8-35.4); Mean Corpuscular Hemoglobin 30.4 pg (27.0-31.2); Mean Corpuscular Volume 89.1 fl (81-99); Mean Platelet Volume 7.7 fl (7.4-10.4); Monocytes # 0.1 K/mm3 (0.1-1.0); Monocytes % 1.1 % (1.7-9.3); Neutrophils # 11.7 K/mm3 (1.8-7.8); Neutrophils % 95.2 % (37.0-80.0); Platelet Count 381 K/mm3 (142-424); Red Blood Count 3.24 M/mm3 (4.20-5.40); Red Cell Distribution Width 14.5 % (11.5-17.5); White Blood Count 12.3 K/mm3 (4.8-10.8)
[2021-04-26 11:27] LABS: Appearance,Urine CLEAR (Clear); Bilirubin,Urine Negative (Negative); Blood, Urine 3+ (Negative); Color,Urine YELLOW (Yellow); Glucose,Urine (UA) Negative (Negative); Ketones,Urine Negative (Negative); Leukocyte Esterase,Urine Negative (Negative); Nitrate,Urine Negative (Negative); Protein,Urine 1+ (Negative); Urobilinogen,Urine 0.2 EU/dl (0.2)
[2021-04-26 11:29] LABS: MANUAL DIFFERENTIAL MANUAL DIFFERENTIAL (MANUAL DIFF)
[2021-04-26 11:31] LABS: Alanine Aminotransferase 36 U/L (12-78); Albumin Level 2.6 g/dl (3.5-5.0); Albumin/Globulin Ratio 0.9 (1.1-1.8); Alkaline Phosphatase 117 U/L (38-126); Anion Gap 5.4 mEq/L (5-15); Aspartate Amino Transferase 38 U/L (14-36); Bilirubin,Total 0.6 mg/dl (0.2-1.3); Blood Urea Nitrogen 16 mg/dl (7-17); Calcium 8.4 mg/dl (8.4-10.2); Carbon Dioxide 24 mmol/L (22.0-30.0); Chloride 95 mmol/L (98-107); Creatinine Clearance Estimated 31 mL/min (50-200); Estimated Glomerular Filt Rate 44 ml/min (>60); GFR (African American) 53 ML/MIN (>60); Globulin 2.8 g/dL (1.3-3.2); Glucose 117 mg/dl (74-100); Potassium 3.4 mmoL/L (3.5-5.1); Sodium 121 mmol/L (136-145); Total Protein,Serum 5.4 g/dl (6.3-8.2)
--- NOTE | 2021-04-26 11:39 | PC.NURSE ---
Called specialty clinic so that MD could speak with Dr Carreno. They advised that she is in with a pt and would return call to the ED.
[2021-04-26 11:50] LABS: Bacteria,Urine 1+ /lpf; RBC,Urine 20-50 #/hpf (0-3)
[2021-04-26 11:59] LABS: Lymphocytes % 3 % (10-50); Neutrophils % 97 % (42-76); Total Cells Counted 100
[2021-04-26 12:00] LABS: Platelet Estimate Normal; Poikilocytosis 2+
[2021-04-26 13:46] VITALS: BP 126/80; PULSE 98; RESP 16; TEMP 37.1; O2SAT 98
[2021-04-26 14:38] VITALS: BP 122/74; PULSE 74; RESP 16; TEMP 36.8; O2SAT 98
== END 2021-04-26 14:40 | disposition home or self-care (01) ==
PROVIDERS: Emergency Provider Emergency Medicine; PCP Family Medicine
DX: E87.1 Hypo-osmolality and hyponatremia (principal); J18.9 Pneumonia, unspecified organism; C18.9 Malignant neoplasm of colon, unspecified; K21.9 Gastro-esophageal reflux disease without esophagitis; Z95.0 Presence of cardiac pacemaker
CPT/HCPCS: 71046; 80053; 81001; 83605; 85007; 85025; 87040; 96367; 96374; 99284; C9803; J0456; J1642; U0003; U0005

== ENCOUNTER 2021-05-03 10:06 | Outpatient (CLI) | payer MEDICARE, SELFPAY ==
[2021-05-03] VITALS (7 sets, daily range): BP systolic 115–133; BP diastolic 65–88; PULSE 89–101; RESP 16–18; TEMP 36.2–36.4; O2SAT 98–99; BMI 20.1
[2021-05-03 10:37] LABS: Basophils % 0.9 % (0.1-2.0); Eosinophils # 0.1 K/mm3 (0.0-0.4); Eosinophils % 1.5 % (0.1-12.0); Hematocrit 28.3 % (37.0-47.0); Hemoglobin 9.5 g/dL (12.2-16.2); Lymphocytes # 0.6 K/mm3 (0.7-4.5); Lymphocytes % 18.6 % (10-50); Mean Corpuscular HGB Conc 33.5 g/dL (31.8-35.4); Mean Corpuscular Hemoglobin 30.2 pg (27.0-31.2); Mean Corpuscular Volume 90.2 fl (81-99); Mean Platelet Volume 7.4 fl (7.4-10.4); Monocytes # 0.1 K/mm3 (0.1-1.0); Monocytes % 3.5 % (1.7-9.3); Neutrophils # 2.4 K/mm3 (1.8-7.8); Neutrophils % 75.5 % (37.0-80.0); Platelet Count 435 K/mm3 (142-424); Red Blood Count 3.14 M/mm3 (4.20-5.40); White Blood Count 3.2 K/mm3 (4.8-10.8)
[2021-05-03 10:41] LABS: Chloride 97 mmol/L (98-107); Sodium 129 mmol/L (136-145)
[2021-05-03 10:43] LABS: Alanine Aminotransferase 45 U/L (12-78); Aspartate Amino Transferase 38 U/L (14-36); Blood Urea Nitrogen 5 mg/dl (7-17); Creatinine Clearance Estimated 36 mL/min (50-200); Estimated Glomerular Filt Rate 54 ml/min (>60); GFR (African American) 65 ML/MIN (>60)
[2021-05-03 10:44] LABS: Albumin Level 2.8 g/dl (3.5-5.0); Alkaline Phosphatase 131 U/L (38-126); Anion Gap 8.8 mEq/L (5-15); Bilirubin,Total 0.4 mg/dl (0.2-1.3); Calcium 8.2 mg/dl (8.4-10.2); Carbon Dioxide 26 mmol/L (22.0-30.0); Globulin 2.8 g/dL (1.3-3.2); Glucose 128 mg/dl (74-100); Total Protein,Serum 5.6 g/dl (6.3-8.2)
[2021-05-03 10:46] LABS: Potassium 2.8 mmoL/L (3.5-5.1)
--- NOTE | 2021-05-03 10:55 | PC.NURSE ---
05/03/21 1045 Sammi Del Toro called RN at 1045 to report a potassium level of 2.8. RN repeated and verified pt name, , and lab value. Result called to Dr. Carreno in oncology clinic, no new orders noted at this time.
== END 2021-05-03 13:59 | disposition home or self-care (01) ==
LOC: INF 10:07
PROVIDERS: PCP Family Medicine; Visit Provider Internal Medicine Medical Oncology
DX: C18.9 Malignant neoplasm of colon, unspecified (principal); Z45.2 Encounter for adjustment and management of vascular access device
CPT/HCPCS: 80053; 85025; 96365; 96366; J1642

== ENCOUNTER 2021-05-24 08:44 | Outpatient (CLI) | payer MEDICARE, SELFPAY ==
[2021-05-24 08:49] VITALS: BMI 19.9
[2021-05-24 09:11] LABS: Basophils # 0.1 K/mm3 (0-0.2); Eosinophils # 0.1 K/mm3 (0.0-0.4); Eosinophils % 0.7 % (0.1-12.0); Hematocrit 32.4 % (37.0-47.0); Hemoglobin 10.1 g/dL (12.2-16.2); Lymphocytes # 1.3 K/mm3 (0.7-4.5); Lymphocytes % 18.5 % (10-50); Mean Corpuscular HGB Conc 31.3 g/dL (31.8-35.4); Mean Corpuscular Hemoglobin 29.7 pg (27.0-31.2); Mean Platelet Volume 7.4 fl (7.4-10.4); Monocytes # 0.3 K/mm3 (0.1-1.0); Monocytes % 4.2 % (1.7-9.3); Neutrophils # 5.4 K/mm3 (1.8-7.8); Neutrophils % 75.6 % (37.0-80.0); Platelet Count 679 K/mm3 (142-424); Red Blood Count 3.41 M/mm3 (4.20-5.40); Red Cell Distribution Width 16.4 % (11.5-17.5); White Blood Count 7.2 K/mm3 (4.8-10.8)
[2021-05-24 09:17] LABS: Alanine Aminotransferase 14 U/L (12-78); Alkaline Phosphatase 111 U/L (38-126); Aspartate Amino Transferase 28 U/L (14-36); Bilirubin,Total 0.5 mg/dl (0.2-1.3); Blood Urea Nitrogen 9 mg/dl (7-17); Calcium 8.9 mg/dl (8.4-10.2); Carbon Dioxide 22 mmol/L (22.0-30.0); Chloride 100 mmol/L (98-107); Creatinine Clearance Estimated 32 mL/min (50-200); Estimated Glomerular Filt Rate 48 ml/min (>60); GFR (African American) 58 ML/MIN (>60); Globulin 2.9 g/dL (1.3-3.2); Glucose 94 mg/dl (74-100); Sodium 125 mmol/L (136-145); Total Protein,Serum 5.9 g/dl (6.3-8.2)
== END 2021-05-24 10:00 | disposition home or self-care (01) ==
LOC: INF 08:45
PROVIDERS: PCP Family Medicine; Visit Provider Internal Medicine Medical Oncology
DX: C18.9 Malignant neoplasm of colon, unspecified (principal); Z45.2 Encounter for adjustment and management of vascular access device
CPT/HCPCS: 80053; 85025; J1642

== ENCOUNTER 2021-05-29 08:15 | Outpatient (CLI) | payer MEDICARE, SELFPAY ==
[2021-05-29] VITALS (9 sets, daily range): BP systolic 94–128; BP diastolic 53–67; PULSE 72–103; RESP 20; TEMP 36.3; O2SAT 99–100; BMI 18.8
== END 2021-05-29 13:25 | disposition home or self-care (01) ==
LOC: INF 08:16
PROVIDERS: PCP Family Medicine; Visit Provider Internal Medicine Medical Oncology
DX: Z51.11 Encounter for antineoplastic chemotherapy (principal); C18.9 Malignant neoplasm of colon, unspecified
CPT/HCPCS: 96411; 96413; 96415; 96417; J0640; J9190; J9206; Q0166

== ENCOUNTER 2021-06-11 09:15 | Outpatient (CLI) | payer MEDICARE, SELFPAY ==
[2021-06-11 09:19] VITALS: BMI 18.7
[2021-06-11 09:41] LABS: Basophils % 0.9 % (0.1-2.0); Eosinophils # 0.1 K/mm3 (0.0-0.4); Eosinophils % 3.4 % (0.1-12.0); Hematocrit 31.8 % (37.0-47.0); Lymphocytes # 1.2 K/mm3 (0.7-4.5); Lymphocytes % 30.2 % (10-50); Mean Corpuscular HGB Conc 31.4 g/dL (31.8-35.4); Mean Corpuscular Hemoglobin 30.8 pg (27.0-31.2); Mean Corpuscular Volume 98.2 fl (81-99); Mean Platelet Volume 8.3 fl (7.4-10.4); Monocytes # 0.2 K/mm3 (0.1-1.0); Monocytes % 5.5 % (1.7-9.3); Neutrophils # 2.3 K/mm3 (1.8-7.8); Platelet Count 508 K/mm3 (142-424); Red Blood Count 3.24 M/mm3 (4.20-5.40); Red Cell Distribution Width 16.8 % (11.5-17.5); White Blood Count 3.9 K/mm3 (4.8-10.8)
[2021-06-11 09:46] LABS: Alanine Aminotransferase 20 U/L (12-78); Albumin Level 3.2 g/dl (3.5-5.0); Albumin/Globulin Ratio 1.1 (1.1-1.8); Alkaline Phosphatase 133 U/L (38-126); Anion Gap 8.7 mEq/L (5-15); Aspartate Amino Transferase 29 U/L (14-36); Bilirubin,Total 0.2 mg/dl (0.2-1.3); Blood Urea Nitrogen 6 mg/dl (7-17); Calcium 9.3 mg/dl (8.4-10.2); Carbon Dioxide 18 mmol/L (22.0-30.0); Chloride 106 mmol/L (98-107); Creatinine Clearance Estimated 33 mL/min (50-200); Estimated Glomerular Filt Rate 54 ml/min (>60); GFR (African American) 65 ML/MIN (>60); Globulin 2.8 g/dL (1.3-3.2); Glucose 104 mg/dl (74-100); Potassium 3.7 mmoL/L (3.5-5.1); Sodium 129 mmol/L (136-145)
== END 2021-06-11 10:35 | disposition home or self-care (01) ==
LOC: INF 09:16
PROVIDERS: PCP Family Medicine; Visit Provider Internal Medicine Medical Oncology
DX: C18.9 Malignant neoplasm of colon, unspecified (principal); Z45.2 Encounter for adjustment and management of vascular access device
CPT/HCPCS: 80053; 85025; J1642

== ENCOUNTER 2021-06-12 08:18 | Outpatient (CLI) | payer MEDICARE, SELFPAY ==
[2021-06-12] VITALS (9 sets, daily range): BP systolic 105–135; BP diastolic 60–75; PULSE 75–111; RESP 20; TEMP 36.2; O2SAT 99–100
== END 2021-06-12 12:45 | disposition home or self-care (01) ==
LOC: INF 08:19
PROVIDERS: PCP Family Medicine; Visit Provider Internal Medicine Medical Oncology
DX: Z51.11 Encounter for antineoplastic chemotherapy (principal); C18.9 Malignant neoplasm of colon, unspecified
CPT/HCPCS: 96411; 96413; 96415; 96417; J0640; J9190; J9206; Q0166

== ENCOUNTER 2021-06-28 10:00 | Outpatient (CLI) | payer MEDICARE, SELFPAY ==
[2021-06-28 10:04] VITALS: BMI 18.9
[2021-06-28 10:40] LABS: Basophils % 0.8 % (0.1-2.0); Eosinophils # 0.1 K/mm3 (0.0-0.4); Eosinophils % 1.3 % (0.1-12.0); Hematocrit 33.2 % (37.0-47.0); Hemoglobin 10.7 g/dL (12.2-16.2); Lymphocytes # 1.1 K/mm3 (0.7-4.5); Lymphocytes % 22.3 % (10-50); Mean Corpuscular HGB Conc 32.3 g/dL (31.8-35.4); Mean Corpuscular Hemoglobin 31.2 pg (27.0-31.2); Mean Corpuscular Volume 96.8 fl (81-99); Mean Platelet Volume 7.7 fl (7.4-10.4); Monocytes # 0.3 K/mm3 (0.1-1.0); Monocytes % 5.7 % (1.7-9.3); Neutrophils # 3.4 K/mm3 (1.8-7.8); Platelet Count 391 K/mm3 (142-424); Red Blood Count 3.42 M/mm3 (4.20-5.40); Red Cell Distribution Width 17.2 % (11.5-17.5); White Blood Count 4.8 K/mm3 (4.8-10.8)
[2021-06-28 10:42] LABS: Chloride 107 mmol/L (98-107); Potassium 3.2 mmoL/L (3.5-5.1); Sodium 132 mmol/L (136-145)
[2021-06-28 10:44] LABS: Blood Urea Nitrogen 7 mg/dl (7-17)
[2021-06-28 10:45] LABS: Alanine Aminotransferase 14 U/L (12-78); Albumin Level 3.3 g/dl (3.5-5.0); Albumin/Globulin Ratio 1.3 (1.1-1.8); Alkaline Phosphatase 170 U/L (38-126); Anion Gap 7.2 mEq/L (5-15); Aspartate Amino Transferase 26 U/L (14-36); Bilirubin,Total 0.4 mg/dl (0.2-1.3); Carbon Dioxide 21 mmol/L (22.0-30.0); Creatinine Clearance Estimated 33 mL/min (50-200); Estimated Glomerular Filt Rate 54 ml/min (>60); GFR (African American) 65 ML/MIN (>60); Globulin 2.6 g/dL (1.3-3.2); Glucose 97 mg/dl (74-100); Total Protein,Serum 5.9 g/dl (6.3-8.2)
== END 2021-06-28 11:05 | disposition home or self-care (01) ==
LOC: INF 10:01
PROVIDERS: PCP Family Medicine; Visit Provider Internal Medicine Medical Oncology
DX: C18.9 Malignant neoplasm of colon, unspecified (principal); Z45.2 Encounter for adjustment and management of vascular access device
CPT/HCPCS: 80053; 85025; J1642

== ENCOUNTER 2021-07-03 08:15 | Outpatient (CLI) | payer MEDICARE, SELFPAY ==
[2021-07-03] VITALS (8 sets, daily range): BP systolic 134–157; BP diastolic 65–78; PULSE 72–90; RESP 18; TEMP 36.4; O2SAT 100
== END 2021-07-03 12:10 | disposition home or self-care (01) ==
LOC: INF 08:16
PROVIDERS: PCP Family Medicine; Visit Provider Internal Medicine Medical Oncology
DX: Z51.11 Encounter for antineoplastic chemotherapy (principal); C18.9 Malignant neoplasm of colon, unspecified
CPT/HCPCS: 96411; 96413; 96415; 96417; J0640; J8501; J9190; J9206; Q0166

== ENCOUNTER 2021-07-10 08:34 | Outpatient (CLI) | payer MEDICARE, SELFPAY ==
--- NOTE | 2021-07-10 08:51 | CT_ITS ---
FINAL REPORT TECHNIQUE: After the administration of intravenous contrast, axial images through the chest were performed by computed tomography. This study was performed with techniques to keep radiation doses as low as reasonably achievable, (ALARA). Individualized dose reduction techniques using automated exposure control or adjustment of mA and/or kV according to the patient's size were employed. CLINICAL HISTORY: COLON CA COMPARISON: February 28, 2021 FINDINGS: There is no axillary adenopathy. There is no hilar or mediastinal adenopathy. The mediastinal vasculature is well opacified. A right-sided chest port catheter tip resides in the SVC. The heart size is normal. There is no pericardial or pleural effusion. In the lung window images there is some new abnormal opacity in the medial left upper lobe with both nodular and linear components. This opacity is well seen on image 36 of series 8. And underlying mass cannot be excluded at this location. There is some pleural and parenchymal scarring at the right lung base. IMPRESSION: New abnormal opacity in the medial left upper lobe with nodular and linear components. Underlying mass cannot be excluded in this location. Reviewed, Interpreted and Dictated by Manny Jackson MD Transcribed by Sarahi Tracy Authenticated by Manny Jackson MD on 07/10/2021 01:31:49 PM [facility]
--- NOTE | 2021-07-10 08:51 | CT_ITS ---
FINAL REPORT TECHNIQUE: After the administration of oral and intravenous contrast, axial images were obtained through the abdomen and pelvis by computed tomography. The study was performed with techniques to keep radiation dose as low as reasonably achievable, (ALARA). Individual dose reduction techniques using automated exposure control or adjustment of mA and/or kV according to the patient's size were employed. CLINICAL HISTORY: COLON CA COMPARISON: February 28, 2021 FINDINGS: Abdomen: The liver parenchyma is homogeneous. The gallbladder is surgically absent. The spleen, pancreas and adrenals appear unremarkable. There is marked left hydronephrosis. There is been interval placement of a left ureteral stent but hydronephrosis persists. There is a left anterior abdominal wall ostomy. A previously noted peristomal hernia is no longer seen. The aorta is normal in caliber. There are postoperative changes from left hemicolectomy. There are some abnormally enlarged retroperitoneal lymph nodes in the periaortic region. There is abnormal soft tissue seen at the level of the left common iliac artery. This abnormal soft tissue obscures tissue planes and is likely responsible for the left ureteral obstruction. Pelvis: The urinary bladder is unremarkable. There are several opacified loops of small bowel in the pelvis measuring up to 3 cm in diameter. No definite obstruction is seen. IMPRESSION: Interval placement of left ureteral stent with persistent marked hydronephrosis. Interval reduction of a left peristomal hernia. Abnormal periaortic and iliac adenopathy which appears more evident than previous and is concerning for metastatic adenopathy. PET scan would be of value. Reviewed, Interpreted and Dictated by Manny Jackson MD Transcribed by Sarahi Tracy Authenticated by Manny Jackson MD on 07/10/2021 01:31:37 PM [facility]
== END 2021-07-10 09:30 | disposition home or self-care (01) ==
LOC: RAD 08:35 → INF 08:38
PROVIDERS: PCP Family Medicine; Visit Provider Internal Medicine Medical Oncology
DX: C18.9 Malignant neoplasm of colon, unspecified (principal)
CPT/HCPCS: 71270; 74178; J1642

== ENCOUNTER 2021-07-16 10:21 | Outpatient (CLI) | payer MEDICARE, SELFPAY ==
[2021-07-16 10:24] VITALS: BMI 16.2
[2021-07-16 10:51] LABS: Eosinophils # 0.1 K/mm3 (0.0-0.4); Eosinophils % 1.5 % (0.1-12.0); Hematocrit 34.3 % (37.0-47.0); Hemoglobin 11.1 g/dL (12.2-16.2); Lymphocytes # 1.2 K/mm3 (0.7-4.5); Lymphocytes % 30.3 % (10-50); Mean Corpuscular HGB Conc 32.4 g/dL (31.8-35.4); Mean Corpuscular Hemoglobin 31.8 pg (27.0-31.2); Mean Platelet Volume 7.4 fl (7.4-10.4); Monocytes # 0.2 K/mm3 (0.1-1.0); Monocytes % 6.1 % (1.7-9.3); Neutrophils # 2.5 K/mm3 (1.8-7.8); Neutrophils % 61.2 % (37.0-80.0); Platelet Count 394 K/mm3 (142-424); Red Blood Count 3.49 M/mm3 (4.20-5.40); Red Cell Distribution Width 15.6 % (11.5-17.5)
[2021-07-16 10:54] LABS: Chloride 105 mmol/L (98-107); Sodium 131 mmol/L (136-145)
[2021-07-16 10:55] LABS: Potassium 3.2 mmoL/L (3.5-5.1)
[2021-07-16 10:57] LABS: Alanine Aminotransferase 18 U/L (12-78); Albumin Level 3.5 g/dl (3.5-5.0); Albumin/Globulin Ratio 1.3 (1.1-1.8); Alkaline Phosphatase 184 U/L (38-126); Anion Gap 7.2 mEq/L (5-15); Aspartate Amino Transferase 31 U/L (14-36); Bilirubin,Total 0.4 mg/dl (0.2-1.3); Blood Urea Nitrogen 8 mg/dl (7-17); Carbon Dioxide 22 mmol/L (22.0-30.0); Creatinine Clearance Estimated 30 mL/min (50-200); Estimated Glomerular Filt Rate 48 ml/min (>60); GFR (African American) 58 ML/MIN (>60); Globulin 2.8 g/dL (1.3-3.2); Total Protein,Serum 6.3 g/dl (6.3-8.2)
[2021-07-16 10:58] LABS: Calcium 8.2 mg/dl (8.4-10.2); Glucose 101 mg/dl (74-100)
== END 2021-07-16 11:25 | disposition home or self-care (01) ==
LOC: INF 10:22
PROVIDERS: PCP Family Medicine; Visit Provider Internal Medicine Medical Oncology
DX: C18.9 Malignant neoplasm of colon, unspecified (principal)
CPT/HCPCS: 80053; 85025; J1642

== ENCOUNTER 2021-07-24 08:11 | Outpatient (CLI) | payer MEDICARE, SELFPAY ==
[2021-07-24 08:21] VITALS: BMI 18.9
[2021-07-24 08:57] LABS: Alanine Aminotransferase 16 U/L (12-78); Albumin Level 3.6 g/dl (3.5-5.0); Albumin/Globulin Ratio 1.3 (1.1-1.8); Alkaline Phosphatase 182 U/L (38-126); Anion Gap 10.3 mEq/L (5-15); Aspartate Amino Transferase 29 U/L (14-36); Bilirubin,Total 0.5 mg/dl (0.2-1.3); Blood Urea Nitrogen 12 mg/dl (7-17); Calcium 8.8 mg/dl (8.4-10.2); Carbon Dioxide 23 mmol/L (22.0-30.0); Chloride 100 mmol/L (98-107); Creatinine Clearance Estimated 33 mL/min (50-200); Estimated Glomerular Filt Rate 54 ml/min (>60); GFR (African American) 65 ML/MIN (>60); Globulin 2.8 g/dL (1.3-3.2); Glucose 109 mg/dl (74-100); Potassium 3.3 mmoL/L (3.5-5.1); Sodium 130 mmol/L (136-145); Total Protein,Serum 6.4 g/dl (6.3-8.2)
[2021-07-24 09:00] LABS: Basophils # 0.1 K/mm3 (0-0.2); Basophils % 0.9 % (0.1-2.0); Eosinophils % 0.4 % (0.1-12.0); Hematocrit 36.4 % (37.0-47.0); Hemoglobin 11.4 g/dL (12.2-16.2); Lymphocytes # 1.2 K/mm3 (0.7-4.5); Lymphocytes % 19.6 % (10-50); Mean Corpuscular HGB Conc 31.4 g/dL (31.8-35.4); Mean Corpuscular Hemoglobin 31.5 pg (27.0-31.2); Mean Corpuscular Volume 100.2 fl (81-99); Mean Platelet Volume 7.4 fl (7.4-10.4); Monocytes # 0.5 K/mm3 (0.1-1.0); Monocytes % 8.4 % (1.7-9.3); Neutrophils # 4.2 K/mm3 (1.8-7.8); Neutrophils % 70.7 % (37.0-80.0); Platelet Count 353 K/mm3 (142-424); Red Blood Count 3.63 M/mm3 (4.20-5.40); Red Cell Distribution Width 15.8 % (11.5-17.5)
[2021-07-24 09:15] VITALS: BP 111/68; PULSE 97; RESP 20; TEMP 36.4; O2SAT 100
[2021-07-24 10:42] VITALS: BP 130/67; PULSE 93; RESP 20; O2SAT 99
[2021-07-24 11:12] VITALS: BP 140/66; PULSE 87; RESP 20; O2SAT 99
[2021-07-24 11:42] VITALS: BP 144/66; PULSE 83; RESP 20; O2SAT 100
[2021-07-24 12:12] VITALS: BP 148/69; PULSE 91; RESP 20; O2SAT 99
[2021-07-24 12:45] VITALS: BP 147/74; PULSE 81; RESP 20; O2SAT 100
== END 2021-07-24 12:58 | disposition home or self-care (01) ==
LOC: INF 08:11
PROVIDERS: Visit Provider Internal Medicine Medical Oncology
DX: Z51.11 Encounter for antineoplastic chemotherapy (principal); C18.9 Malignant neoplasm of colon, unspecified
CPT/HCPCS: 80053; 85025; 96411; 96413; 96415; 96417; J0640; J8501; J9190; J9206; Q0166

== ENCOUNTER 2021-08-09 13:23 | Outpatient (CLI) | payer MEDICARE, SELFPAY ==
[2021-08-09 13:29] VITALS: BMI 17.6
[2021-08-09 13:49] LABS: Alanine Aminotransferase 23 U/L (12-78); Albumin Level 3.3 g/dl (3.5-5.0); Albumin/Globulin Ratio 1.3 (1.1-1.8); Alkaline Phosphatase 176 U/L (38-126); Anion Gap 8.3 mEq/L (5-15); Aspartate Amino Transferase 27 U/L (14-36); Bilirubin,Total 0.3 mg/dl (0.2-1.3); Blood Urea Nitrogen 9 mg/dl (7-17); Calcium 8.8 mg/dl (8.4-10.2); Carbon Dioxide 21 mmol/L (22.0-30.0); Chloride 107 mmol/L (98-107); Creatinine Clearance Estimated 31 mL/min (50-200); Estimated Glomerular Filt Rate 54 ml/min (>60); GFR (African American) 65 ML/MIN (>60); Globulin 2.6 g/dL (1.3-3.2); Glucose 116 mg/dl (74-100); Potassium 3.3 mmoL/L (3.5-5.1); Sodium 133 mmol/L (136-145); Total Protein,Serum 5.9 g/dl (6.3-8.2)
[2021-08-09 14:00] LABS: Basophils # 0.1 K/mm3 (0-0.2); Basophils % 1.4 % (0.1-2.0); Eosinophils # 0.1 K/mm3 (0.0-0.4); Eosinophils % 2.1 % (0.1-12.0); Hematocrit 33.7 % (37.0-47.0); Hemoglobin 11.1 g/dL (12.2-16.2); Lymphocytes # 1.2 K/mm3 (0.7-4.5); Mean Corpuscular HGB Conc 32.8 g/dL (31.8-35.4); Mean Corpuscular Hemoglobin 31.6 pg (27.0-31.2); Mean Corpuscular Volume 96.3 fl (81-99); Mean Platelet Volume 8.3 fl (7.4-10.4); Monocytes # 0.2 K/mm3 (0.1-1.0); Neutrophils # 1.9 K/mm3 (1.8-7.8); Neutrophils % 55.5 % (37.0-80.0); Platelet Count 412 K/mm3 (142-424); Red Cell Distribution Width 15.2 % (11.5-17.5); White Blood Count 3.5 K/mm3 (4.8-10.8)
== END 2021-08-09 14:15 | disposition home or self-care (01) ==
LOC: INF 13:24
PROVIDERS: PCP Family Medicine; Visit Provider Internal Medicine Medical Oncology
DX: Z45.2 Encounter for adjustment and management of vascular access device (principal)
CPT/HCPCS: 80053; 85025; J1642

== ENCOUNTER 2021-08-14 08:15 | Outpatient (CLI) | payer MEDICARE, SELFPAY ==
[2021-08-14] VITALS (7 sets, daily range): BP systolic 106–145; BP diastolic 64–82; PULSE 74–113; RESP 18; TEMP 36.3; O2SAT 99–100
== END 2021-08-14 12:13 | disposition home or self-care (01) ==
LOC: INF 08:16
PROVIDERS: PCP Family Medicine; Visit Provider Internal Medicine Medical Oncology
DX: C18.9 Malignant neoplasm of colon, unspecified (principal)
CPT/HCPCS: 96411; 96413; 96415; 96417; J0640; J8501; J9190; J9206; Q0166

== ENCOUNTER 2021-08-23 12:02 | Outpatient (CLI) | payer MEDICARE, SELFPAY ==
[2021-08-23 12:16] VITALS: BMI 20.8
[2021-08-23 12:28] LABS: Basophils % 0.9 % (0.1-2.0); Eosinophils # 0.1 K/mm3 (0.0-0.4); Hematocrit 34.2 % (37.0-47.0); Hemoglobin 11.4 g/dL (12.2-16.2); Lymphocytes # 1.3 K/mm3 (0.7-4.5); Lymphocytes % 29.6 % (10-50); Mean Corpuscular HGB Conc 33.3 g/dL (31.8-35.4); Mean Corpuscular Hemoglobin 30.9 pg (27.0-31.2); Mean Platelet Volume 7.3 fl (7.4-10.4); Monocytes # 0.2 K/mm3 (0.1-1.0); Neutrophils # 2.7 K/mm3 (1.8-7.8); Neutrophils % 62.5 % (37.0-80.0); Platelet Count 378 K/mm3 (142-424); Red Blood Count 3.68 M/mm3 (4.20-5.40); Red Cell Distribution Width 13.9 % (11.5-17.5); White Blood Count 4.3 K/mm3 (4.8-10.8)
[2021-08-23 12:36] LABS: Alanine Aminotransferase 38 U/L (12-78); Albumin Level 3.6 g/dl (3.5-5.0); Albumin/Globulin Ratio 1.3 (1.1-1.8); Alkaline Phosphatase 180 U/L (38-126); Anion Gap 9.4 mEq/L (5-15); Aspartate Amino Transferase 39 U/L (14-36); Bilirubin,Total 0.4 mg/dl (0.2-1.3); Blood Urea Nitrogen 9 mg/dl (7-17); Calcium 9.1 mg/dl (8.4-10.2); Carbon Dioxide 22 mmol/L (22.0-30.0); Chloride 103 mmol/L (98-107); Creatinine Clearance Estimated 26 mL/min (50-200); Estimated Glomerular Filt Rate 44 ml/min (>60); GFR (African American) 53 ML/MIN (>60); Globulin 2.7 g/dL (1.3-3.2); Glucose 112 mg/dl (74-100); Potassium 3.4 mmoL/L (3.5-5.1); Sodium 131 mmol/L (136-145); Total Protein,Serum 6.3 g/dl (6.3-8.2)
== END 2021-08-23 13:08 | disposition home or self-care (01) ==
LOC: INF 12:03
PROVIDERS: PCP Family Medicine; Visit Provider Internal Medicine Medical Oncology
DX: C18.9 Malignant neoplasm of colon, unspecified (principal); Z45.2 Encounter for adjustment and management of vascular access device
CPT/HCPCS: 80053; 85025; J1642

== ENCOUNTER 2021-08-28 08:17 | Outpatient (CLI) | payer MEDICARE, SELFPAY ==
[2021-08-28] VITALS (8 sets, daily range): BP systolic 112–148; BP diastolic 55–77; PULSE 70–93; RESP 18; TEMP 36.3; O2SAT 98–100; BMI 17.7
== END 2021-08-28 11:50 | disposition home or self-care (01) ==
LOC: INF 08:18
PROVIDERS: PCP Family Medicine; Visit Provider Internal Medicine Medical Oncology
DX: Z51.11 Encounter for antineoplastic chemotherapy (principal); C18.9 Malignant neoplasm of colon, unspecified
CPT/HCPCS: 96411; 96413; 96415; 96417; J0640; J9190; J9206; Q0166

== ENCOUNTER → 2021-09-07 09:46 | Outpatient (CLI) | payer MEDICARE, SELFPAY | PROVIDERS: PCP Family Medicine; Visit Provider Urology | DX: N13.30 Unspecified hydronephrosis (principal); Z01.812 Encounter for preprocedural laboratory examination; Z11.52 Encounter for screening for COVID-19 | CPT/HCPCS: C9803; U0003; U0005 ==

== ENCOUNTER 2021-09-10 06:14 | Day surgery (SDC) | payer MEDICARE, SELFPAY ==
[2021-09-05 10:54] VITALS: BMI 16.9
[2021-09-10] VITALS (12 sets, daily range): BP systolic 91–142; BP diastolic 53–87; PULSE 70–99; RESP 16–18; TEMP 36.1–43; O2SAT 97–100
--- NOTE | 2021-09-10 | XR_ITS ---
FINAL REPORT TECHNIQUE: Fluoroscopy was provided for the surgical services CLINICAL HISTORY: stent placement surgery- fluro time 1.29 FINDINGS: Fluoroscopic guidance for stent placement: Fluoroscopy Time: 1 minute 29 seconds Images Submitted: 2 spot films IMPRESSION: 1 minute 29 seconds fluoroscopy time. Reviewed, Interpreted and Dictated by Manny Jackson MD Transcribed by Tim Roach Authenticated by Manny Jackson MD on 09/10/2021 10:31:42 AM [facility]
--- NOTE | 2021-09-10 07:15 | P.PN_ITS ---
[facility] Anesthesia Checklist - Structural Data Admitted From: Home Planned Operative Procedure/s: cysto Consent for Planned Operative Procedure(s) Verified: Yes - Additional verifications Anesthesia Reactions: No Hx Blood Transfusions: Yes Blood Transfusion Reaction: No - Airway Assessment C-Spine Mobility Assessed: Yes TMJ Mobility Assessed: Yes Dentition: Poor Dentition - Neurological Assessment Level of Consciousness: Awake, Alert, Appropriate - Anesthesia Plan Anesthesia Risk discussed: Yes Anesthesia Plan: Verified ASA Class: III Anesthesia Type: General [facility] History I have reviewed the patient's past medical history: Yes Medical History: Reports:: Anxiety, Arrhythmia, Atrial Fibrillation, Cancer (colon ca, uterus, ureter), Gastroesophageal Reflux Disease(GERD), Kidney Stones Denies:: Diabetes Mellitus Type 1, Diabetes Mellitus Type 2, Internal Pacemaker, Lung Disease, MRSA, Seizures *Have you ever received a pneumonia vaccine?: Yes *Have you received a flu vaccine this season?: Yes Other Medical History: Reports: Anemia, Chemotherapy, Hypothyroidism. Denies: Blood Transfusion Reaction Anesthesia experience/problems:: none Other Surgeries: Yes: No Previous Surgery, Cancer Surgery, Cholecystectomy, Colonoscopy, Colon Resection, Colostomy, Hysterectomy-Total, Other (pac). No: Pacemaker Amputation: No Fractures: No - *Social History Last grade of school completed: High school graduate Smoking Status: Never smoker # Packs/Day (cigarettes): 0 Alcohol Intake: never Alcohol Intake Frequency:: other Substance Use Type: denies use *Occupational Status:: retired Housing: house Household Members: spouse *Travel in the last 8 weeks: None - Psychiatric History Pschychiatric History:: Reports:: Anxiety Family Hx:: Diabetes, Heart Attack, Hypertension, Stroke
--- NOTE | 2021-09-10 09:06 | HMH.ANESI ---
[facility] Anesthesia Record Part I Intake, IV Amount: 600 Estimated blood loss (mL): 0 Urine output (mL): 0 Blood Pressure: 91/53 SaO2: 100 Pulse Rate: 78 Respiratory Rate: 16 Temperature: 97.7 F Patient is:: Drowsy
--- NOTE | 2021-09-10 09:48 | HMH.ANESII ---
[facility] Anesthesia Record Part II Discharge Time: 09:34 Destination: Surgical Day Care (OP Surgery) PACU nurse assessment reviewed?: Yes Patient Condition:: Good Anesthesia Complications:: None Swallowing reflex intact?: Yes Cyanosis?: No Blood Pressure: 117/63 Pulse Rate: 71 Temperature: 98.1 F Mental Status: Alert & Oriented Pain level:: 0 Nausea and/or vomitting:: None Intake, IV Amount: 0
--- NOTE | 2021-09-10 11:56 | HMH.OPNOTE ---
Date of procedure: 09/10/21 Pre-op Diagnosis:: Left hydronephrosis Post-op Diagnosis:: Left hydronephrosis from extrinsic compression Procedure performed:: Left ureteral stent removal and replacement of left ureteral stent Surgeon:: Edwardo Greene MD MACHINE SOLE LEVELER:: Other (russ s) Anesthesia: LMA Estimated blood loss (mL): 0 Clinical Note:: Patient is a 76-year-old white female with metastatic rectal cancer. She has some abdominal lymph nodes which are causing compression of the left ureter and stent was placed 6 months ago but the lymph nodes have not resolved as of yet there continues to be hydronephrosis of the left kidney. Patient is tolerating the stent very well and denies any flank pain. Operative findings:: he left renal stent was removed and replacement of a guidewire and the ureteral catheter met obstruction in the proximal left ureter. Contrast was injected with apparent blockage and no contrast was getting by the point of obstruction. 8.025 angled zip wire was passed through the ureteral catheter and we were able to manipulate the wire behind the obstruction. We then passed the ureteral catheter over the guidewire and removed the zip wire and placed a 0.035 sensor guidewire. The ureteral catheter then removed and a 4.8 522 Bangladeshi stent was placed. There was still a little bit of redundancy of the stent due to patient's short stature. There was a lot of debris coming from the stent afterwards indicating likely obstruction of the stent prior. The string was removed from the stent and Urojet placed into the urethra for comfort. She tolerated procedure well no complications Operative note:: Patient taken to the operating room after informed consent was obtained. She was placed on the operating table in the supine position and general anesthesia administered. Preoperative antibiotics and compression devices placed. She was then placed into the dorsal lithotomy position and prepped and draped in standard surgical fashion. The 22 Bangladeshi cystoscope passed into the urethra and into the bladder. The left ureteral stent was grasped and pulled out to the meatus. Attempted to pass a guidewire through the ureteral catheter but did not could not pass so the ureteral catheter was removed. The cystoscope was replaced and a guidewire was passed into the left ureteral orifice and proximally. There was obstruction met in the left proximal ureter. A 5 Bangladeshi ureteral catheter was passed over the guidewire and again attempted to pass the wire the blockage but there was no success. Contrast was injected at the point of apparent blockage and no contrast was getting by the point of obstruction. A 0.25 angled zip wire was passed through the ureteral catheter and we were able to manipulate the wire by the obstruction. We then passed the ureteral catheter over the guidewire and removed the zip wire and placed a 0.035 sensor guidewire. The ureteral catheter then removed and a 4.8 522 Bangladeshi stent was placed. There was still a little bit of redundancy of the stent due to patient's short stature. There was a lot of debris coming from the stent afterwards indicating likely obstruction of the stent prior. The string was removed from the stent and Urojet placed into the urethra for comfort. She tolerated procedure well no complications Condition: stable Disposition: PACU Specimens:: Left ureteral stent Complications:: None
== END 2021-09-10 10:10 | disposition home or self-care (01) ==
LOC: OR 06:16
PROVIDERS: PCP Family Medicine; Visit Provider Urology
PROC: (CPT 52310; principal; 2021-09-10 08:00)
DX: N13.1 Hydronephrosis with ureteral stricture, not elsewhere classified (principal); Z85.42 Personal history of malignant neoplasm of other parts of uterus; Z85.54 Personal history of malignant neoplasm of ureter; I48.91 Unspecified atrial fibrillation; Z85.038 Personal history of other malignant neoplasm of large intestine; K21.9 Gastro-esophageal reflux disease without esophagitis; I49.9 Cardiac arrhythmia, unspecified; D64.9 Anemia, unspecified; E03.9 Hypothyroidism, unspecified; Z83.3 Family history of diabetes mellitus; Z82.3 Family history of stroke; Z82.49 Family history of ischemic heart disease and other diseases of the circulatory system
CPT/HCPCS: 52332; 74018; 76000; 96374; C1769; C2617; J1642; J2405

== ENCOUNTER 2021-09-20 09:48 | Outpatient (CLI) | payer MEDICARE, SELFPAY ==
[2021-09-20 09:53] VITALS: BMI 17.7
[2021-09-20 10:14] LABS: Basophils # 0.1 K/mm3 (0-0.2); Eosinophils # 0.1 K/mm3 (0.0-0.4); Eosinophils % 1.1 % (0.1-12.0); Hematocrit 35.8 % (37.0-47.0); Lymphocytes # 1.3 K/mm3 (0.7-4.5); Lymphocytes % 20.2 % (10-50); Mean Corpuscular HGB Conc 33.6 g/dL (31.8-35.4); Mean Corpuscular Volume 98.2 fl (81-99); Mean Platelet Volume 8.2 fl (7.4-10.4); Monocytes # 0.4 K/mm3 (0.1-1.0); Monocytes % 5.5 % (1.7-9.3); Neutrophils # 4.7 K/mm3 (1.8-7.8); Neutrophils % 72.2 % (37.0-80.0); Platelet Count 329 K/mm3 (142-424); Red Blood Count 3.64 M/mm3 (4.20-5.40); Red Cell Distribution Width 15.4 % (11.5-17.5); White Blood Count 6.5 K/mm3 (4.8-10.8)
[2021-09-20 10:22] LABS: Alanine Aminotransferase 42 U/L (12-78); Albumin Level 3.6 g/dl (3.5-5.0); Albumin/Globulin Ratio 1.3 (1.1-1.8); Alkaline Phosphatase 247 U/L (38-126); Anion Gap 12.1 mEq/L (5-15); Aspartate Amino Transferase 45 U/L (14-36); Bilirubin,Total 0.6 mg/dl (0.2-1.3); Blood Urea Nitrogen 11 mg/dl (7-17); Calcium 9.4 mg/dl (8.4-10.2); Carbon Dioxide 21 mmol/L (22.0-30.0); Chloride 101 mmol/L (98-107); Creatinine Clearance Estimated 31 mL/min (50-200); Estimated Glomerular Filt Rate 54 ml/min (>60); GFR (African American) 65 ML/MIN (>60); Globulin 2.7 g/dL (1.3-3.2); Glucose 150 mg/dl (74-100); Potassium 3.1 mmoL/L (3.5-5.1); Sodium 131 mmol/L (136-145); Total Protein,Serum 6.3 g/dl (6.3-8.2)
== END 2021-09-20 11:05 | disposition home or self-care (01) ==
LOC: INF 09:48
PROVIDERS: PCP Family Medicine; Visit Provider Internal Medicine Medical Oncology
DX: C18.9 Malignant neoplasm of colon, unspecified (principal); Z45.2 Encounter for adjustment and management of vascular access device
CPT/HCPCS: 80053; 85025; J1642

== ENCOUNTER 2021-09-25 08:08 | Outpatient (CLI) | payer MEDICARE, SELFPAY ==
[2021-09-25] VITALS (9 sets, daily range): BP systolic 120–137; BP diastolic 71–94; PULSE 77–104; RESP 18; TEMP 36.4; O2SAT 97–98
--- NOTE | 2021-09-25 11:04 | DIET.NUTRFU ---
RD consulted to see patient today due to weight loss.Patient reported weight loss of ~20# since March 2021. She has infusion every other week, has some nausea and probably eats less those weeks. She takes zofran to help, seems effective. She tries to eat 6 small meals per day, reviewed dietary recall and suggested some high calorie/high protein choices. Provided handout. Possible lactose intolerant, c/o some gas with ice cream and ensure. Suggested taking a lactid pill to help with dairy products. Drinks Gatorade protein fruit punch- adds 10gm protein/500ml. Suggested boost breeze 8oz for 9gm protein, might then be able to drink 2/day. Also suggested some whey protein she could mix in her mashed potatoes/meatloaf sandwich or potato soup.
== END 2021-09-25 12:50 | disposition home or self-care (01) ==
LOC: INF 08:10
PROVIDERS: PCP Family Medicine; Visit Provider Internal Medicine Medical Oncology
DX: Z51.11 Encounter for antineoplastic chemotherapy (principal); C18.9 Malignant neoplasm of colon, unspecified
CPT/HCPCS: 96368; 96411; 96413; 96415; J0640; J9190; J9206; Q0166

== ENCOUNTER 2021-10-04 08:05 | Outpatient (CLI) | payer MEDICARE, SELFPAY ==
[2021-10-04 08:11] VITALS: BMI 16.9
[2021-10-04 08:23] LABS: Basophils % 0.5 % (0.1-2.0); Eosinophils # 0.1 K/mm3 (0.0-0.4); Eosinophils % 0.7 % (0.1-12.0); Hematocrit 32.5 % (37.0-47.0); Hemoglobin 10.8 g/dL (12.2-16.2); Lymphocytes # 1.1 K/mm3 (0.7-4.5); Lymphocytes % 15.1 % (10-50); Mean Corpuscular HGB Conc 33.4 g/dL (31.8-35.4); Mean Platelet Volume 8.6 fl (7.4-10.4); Monocytes # 0.3 K/mm3 (0.1-1.0); Monocytes % 4.3 % (1.7-9.3); Neutrophils # 5.8 K/mm3 (1.8-7.8); Neutrophils % 79.4 % (37.0-80.0); Platelet Count 361 K/mm3 (142-424); Red Blood Count 3.38 M/mm3 (4.20-5.40); Red Cell Distribution Width 14.6 % (11.5-17.5); White Blood Count 7.3 K/mm3 (4.8-10.8)
[2021-10-04 08:27] LABS: Chloride 101 mmol/L (98-107); Potassium 3.5 mmoL/L (3.5-5.1); Sodium 127 mmol/L (136-145)
[2021-10-04 08:29] LABS: Blood Urea Nitrogen 9 mg/dl (7-17); Creatinine Clearance Estimated 30 mL/min (50-200); Estimated Glomerular Filt Rate 54 ml/min (>60); GFR (African American) 65 ML/MIN (>60)
[2021-10-04 08:30] LABS: Albumin Level 3.5 g/dl (3.5-5.0); Albumin/Globulin Ratio 1.3 (1.1-1.8); Alkaline Phosphatase 253 U/L (38-126); Anion Gap 12.5 mEq/L (5-15); Bilirubin,Total 0.7 mg/dl (0.2-1.3); Carbon Dioxide 17 mmol/L (22.0-30.0); Globulin 2.8 g/dL (1.3-3.2); Glucose 139 mg/dl (74-100); Total Protein,Serum 6.3 g/dl (6.3-8.2)
[2021-10-04 08:31] LABS: Alanine Aminotransferase 70 U/L (12-78); Aspartate Amino Transferase 45 U/L (14-36)
--- NOTE | 2021-10-04 09:00 | PC.NURSE ---
0900-notified from yury boss in specialty clinic pt is going to er to be further evaluated.
== END 2021-10-04 09:00 | disposition still patient (30) ==
LOC: INF 08:07
PROVIDERS: PCP Family Medicine; Visit Provider Internal Medicine Medical Oncology
DX: C18.9 Malignant neoplasm of colon, unspecified (principal)
CPT/HCPCS: 36591; 80053; 85025

== ENCOUNTER 2021-10-04 09:08 | Emergency (ER) | payer MEDICARE, SELFPAY ==
[2021-10-04 09:09] VITALS: BP 87/63; PULSE 103; RESP 16; TEMP 36.6; O2SAT 99; BMI 16.2
--- NOTE | 2021-10-04 09:12 | PC.NURSE ---
SANDRA Darnell at BS
--- NOTE | 2021-10-04 09:18 | PC.NURSE ---
ED MD at
--- NOTE | 2021-10-04 09:22 | ECG_ITS ---
APPROVED REPORT Exam: Resting ECG HR:98 bpm ECG Measurements Heart Rate 98 AXES MN 147 P 68 QRSd 92 QRS 72 QT 329 T 98 QTc 384 Conclusion SINUS RHYTHM WITH OCCASIONAL VENTRICULAR PREMATURE COMPLEXES NONSPECIFIC T-WAVE ABNORMALITY BORDERLINE ECG UNCONFIRMED REPORT Electronically signed by : Tee Matute MD 10/06/2021 16:05:16
--- NOTE | 2021-10-04 09:23 | HMH.EDGENADL ---
ED Disposition Clinical Impression: Deep vein thrombosis of left lower extremity Qualifiers: Affected thrombotic vein of extremity: other lower extremity vein Chronicity: acute Qualified Code(s): I82.492 - Acute embolism and thrombosis of other specified deep vein of left lower extremity Disposition: Home, Self-Care Condition on Discharge: Good Instructions: Deep Vein Thrombosis, Dehydration Additional Instructions: follow up with your doctor call for appt, return here for worse or any concerns Prescriptions: Apixaban [Eliquis 5mg tab] 5 mg PO BID 21 Days #30 packet Transmission Status: Received by [facility] Referrals: Shonna Desir MD [Primary Care Provider] - - Critical Care Critical Care Time: No Attestation: On 10/04/21, the high probability of a clinically significant, sudden or life threatening deterioration of the following system(s) required my full and direct attention, intervention and personal management. The time I documented below is in addition to time spent performing reported procedures but includes the following listed in this critical care notation. Medical Decision Making - Medical Records Medical records reviewed: Yes: I reviewed the patient's medical records. - [place] Inquiry Pt receiving controlled substance: No Vital Signs: 10/04/21 09:09 10/04/21 09:43 10/04/21 10:00 Temperature 97.9 F Temperature Source Oral Pulse Rate 89 87 Pulse Rate [Right Radial] 103 H Respiratory Rate 16 Blood Pressure 94/63 L 115/63 Blood Pressure [Left Arm] 87/63 L Blood Pressure Mean [Left Arm] 71 Blood Pressure Source Automatic Cuff Automatic Cuff Blood Pressure Source [Left Arm] Automatic Cuff Blood Pressure Position Sitting Sitting Blood Pressure Position [Left Arm] Sitting 02 Sat by Pulse Oximetry 99 100 100 Oxygen Delivery Method Room Air Room Air Room Air Orders (Tests/Meds): ED MEDICATIONS Discontinued Medications Generic Name Dose Route Start Last Admin Trade Name Freq PRN Reason Stop Dose Admin Sodium Chloride 1,000 mls @ 999 mls/hr 10/04/21 09:30 10/04/21 09:29 Sod Chlor 0.9% 1000ml Bag IV 10/04/21 10:30 999 mls/hr .Q1H1M JIAN Administration ORDERS Category Date Time Status Urinalysis and Microscopic Stat Lab 10/04/21 10:33 Received - Reevaluation(s) Time: 10:21 (reeval, vss, apperas well, chin po, no c/o cp or soa, dvt likely localized to leg, N/V intact with nml skin, no s/s of bleeing risk, discussed with Oncology and pt/family agreed to plan to rx eloquis and f/u in office) Medical Decision Narrative: ekg by me nsr, pvc x1, qrs narrow, no st elev General Adult HPI - General Stated complaint: lt leg swelling Time Seen by Provider: 10/04/21 09:25 - History of Present Illness HPI narrative: generalized weakness, left leg swelling, dec apetitie h/o colon ca, sent by onc for eval Onset (ago): day(s) Radiation: non-radiation Severity: moderate Quality: constant Consistency: constant Relieving factors: none Exacerbating factors: none Associated symptoms: denies other symptoms - Related Data Home Medications Medication Instructions Recorded Confirmed Ferrous Sulfate [Iron] 65 mg PO BID 07/24/18 10/04/21 Cholecalciferol (Vitamin D3) 1,000 unit PO DAILY 03/14/21 10/04/21 [Vitamin D-400] Folic Acid/Multivit,Iron,[place] 1 each PO DAILY 03/16/21 10/04/21 [One Daily For Women Tablet] aspirin 81 mg tablet,delayed 81 mg PO .every 3 days tab 06/11/21 10/04/21 release potassium chloride 20 mEq 20 meq PO BID tab 06/11/21 10/04/21 tablet,extended release lidocaine-prilocaine 2.5 %-2.5 % 2.5 g TP ONCE g 10/04/21 10/04/21 topical cream Previous Rx's Medication Instructions Recorded Apixaban [Eliquis 5mg tab] 5 mg PO BID 21 Days #30 packet 10/04/21 Allergies Allergy/AdvReac Type Severity Reaction Status Date / Time No Known Allergies Allergy Verified 10/04/21 08:26 [facility] History -
--- NOTE | 2021-10-04 09:27 | CA_ITS ---
FINAL REPORT TECHNIQUE: Color Doppler, duplex Doppler and compression sonography of the right lower extremity venous system was performed. CLINICAL HISTORY: swelling hx colon ca FINDINGS: There is deep venous thrombosis from the level of the groin to the calf. IMPRESSION: Extensive left lower extremity deep venous thrombosis. The patient's nurse was notified of these findings by the ct scan special procedures technologist at the time of scan. Reviewed, Interpreted and Dictated by Rip Aggarwal III, MD Transcribed by Tim Roach Authenticated by Rip Aggarwal III, MD on 10/04/2021 10:17:35 AM [facility]
--- NOTE | 2021-10-04 09:28 | PC.NURSE ---
patient given ice chips and ice water; nayeli'd by Dr. Palm
--- NOTE | 2021-10-04 09:29 | PC.NURSE ---
Pt states that she is unable to provide a urine sample at this time. IVF started.
--- NOTE | 2021-10-04 09:39 | PC.NURSE ---
Doppler tech at BS
[2021-10-04 09:43] VITALS: BP 94/63; PULSE 89; O2SAT 100
--- NOTE | 2021-10-04 09:55 | PC.NURSE ---
Dr. Palm speaking with Dr. Carreno
[2021-10-04 10:00] VITALS: BP 115/63; PULSE 87; O2SAT 100
--- NOTE | 2021-10-04 10:25 | PC.NURSE ---
patient to restroom by wheelchair with assistance from me; no complications
--- NOTE | 2021-10-04 10:30 | PC.NURSE ---
patient back to ED room 4 from restroom by wheelchair; patient hooked back up to monitor; no other needs at this time
[2021-10-04 10:43] LABS: Microscopic, Urine URINE MICROSCOPIC (MICROSCOPIC)
[2021-10-04 10:49] LABS: Bilirubin,Urine Negative (Negative); Blood, Urine 3+ (Negative); Color,Urine YELLOW (Yellow); Glucose,Urine (UA) Negative (Negative); Ketones,Urine Negative (Negative); Leukocyte Esterase,Urine 1+ (Negative); Nitrate,Urine Negative (Negative); Protein,Urine 2+ (Negative); Specific Gravity, Urine >= 1.030 (1.005-1.030); Urobilinogen,Urine 0.2 EU/dl (0.2)
[2021-10-04 11:03] LABS: Appearance,Urine Slightly Cloudy (Clear)
[2021-10-04 11:08] VITALS: BP 124/61; PULSE 87; O2SAT 100
[2021-10-04 11:13] LABS: RBC,Urine 50-100 #/hpf (0-3); WBC,Urine 50-100 #/hpf (0-3)
[2021-10-04 11:14] LABS: Bacteria,Urine 4+ /lpf
--- NOTE | 2021-10-04 11:33 | PC.NURSE ---
SANDRA Diaz at discussing D/C instructions
[2021-10-04 11:34] VITALS: BP 118/64; PULSE 94; O2SAT 100
[2021-10-04 11:47] VITALS: BP 118/64; PULSE 94; RESP 16; TEMP 36.6; O2SAT 100
== END 2021-10-04 11:47 | disposition home or self-care (01) ==
PROVIDERS: Emergency Provider Emergency Medicine; PCP Family Medicine
DX: I82.402 Acute embolism and thrombosis of unspecified deep veins of left lower extremity (principal); R53.1 Weakness; E86.0 Dehydration; Z85.038 Personal history of other malignant neoplasm of large intestine; I48.91 Unspecified atrial fibrillation; K21.9 Gastro-esophageal reflux disease without esophagitis; E03.9 Hypothyroidism, unspecified; M19.90 Unspecified osteoarthritis, unspecified site; Z79.01 Long term (current) use of anticoagulants; Z79.82 Long term (current) use of aspirin; Z79.899 Other long term (current) drug therapy; Z87.442 Personal history of urinary calculi; Z92.21 Personal history of antineoplastic chemotherapy; Z82.49 Family history of ischemic heart disease and other diseases of the circulatory system; Z80.9 Family history of malignant neoplasm, unspecified; Z83.3 Family history of diabetes mellitus
CPT/HCPCS: 36591; 80053; 81001; 85025; 87086; 93005; 93971; 96361; 96374; 99285; J1642

== ENCOUNTER 2021-10-12 09:06 | Outpatient (CLI) | payer MEDICARE, SELFPAY ==
[2021-10-12 09:13] VITALS: BMI 16.4
[2021-10-12 09:36] LABS: Basophils # 0.1 K/mm3 (0-0.2); Basophils % 1.4 % (0.1-2.0); Eosinophils % 0.6 % (0.1-12.0); Hematocrit 33.4 % (37.0-47.0); Lymphocytes # 1.1 K/mm3 (0.7-4.5); Mean Corpuscular Hemoglobin 32.2 pg (27.0-31.2); Mean Corpuscular Volume 97.4 fl (81-99); Mean Platelet Volume 7.9 fl (7.4-10.4); Monocytes # 0.4 K/mm3 (0.1-1.0); Monocytes % 5.8 % (1.7-9.3); Neutrophils # 4.8 K/mm3 (1.8-7.8); Neutrophils % 75.1 % (37.0-80.0); Platelet Count 526 K/mm3 (142-424); Red Blood Count 3.42 M/mm3 (4.20-5.40); Red Cell Distribution Width 15.4 % (11.5-17.5); White Blood Count 6.5 K/mm3 (4.8-10.8)
[2021-10-12 09:42] LABS: Alanine Aminotransferase 30 U/L (12-78); Albumin Level 3.3 g/dl (3.5-5.0); Albumin/Globulin Ratio 1.2 (1.1-1.8); Alkaline Phosphatase 255 U/L (38-126); Aspartate Amino Transferase 29 U/L (14-36); Bilirubin,Total 0.2 mg/dl (0.2-1.3); Blood Urea Nitrogen 8 mg/dl (7-17); Calcium 9.6 mg/dl (8.4-10.2); Carbon Dioxide 19 mmol/L (22.0-30.0); Chloride 105 mmol/L (98-107); Creatinine Clearance Estimated 29 mL/min (50-200); Estimated Glomerular Filt Rate 54 ml/min (>60); GFR (African American) 65 ML/MIN (>60); Globulin 2.7 g/dL (1.3-3.2); Glucose 131 mg/dl (74-100); Sodium 132 mmol/L (136-145)
== END 2021-10-12 10:20 | disposition home or self-care (01) ==
LOC: INF 09:07
PROVIDERS: PCP Family Medicine; Visit Provider Internal Medicine Medical Oncology
DX: C18.9 Malignant neoplasm of colon, unspecified (principal); Z45.2 Encounter for adjustment and management of vascular access device
CPT/HCPCS: 36591; 80053; 85025; J1642

== ENCOUNTER 2021-11-08 09:49 | Outpatient (CLI) | payer MEDICARE, SELFPAY ==
[2021-11-08 09:54] VITALS: BMI 16.2
[2021-11-08 10:25] LABS: Basophils % 0.4 % (0.1-2.0); Chloride 103 mmol/L (98-107); Eosinophils % 0.5 % (0.1-12.0); Hematocrit 31.1 % (37.0-47.0); Hemoglobin 10.6 g/dL (12.2-16.2); Lymphocytes # 1.2 K/mm3 (0.7-4.5); Lymphocytes % 16.2 % (10-50); Mean Corpuscular HGB Conc 33.9 g/dL (31.8-35.4); Mean Corpuscular Hemoglobin 30.9 pg (27.0-31.2); Monocytes # 0.5 K/mm3 (0.1-1.0); Monocytes % 6.1 % (1.7-9.3); Neutrophils # 5.6 K/mm3 (1.8-7.8); Neutrophils % 76.7 % (37.0-80.0); Platelet Count 369 K/mm3 (142-424); Potassium 3.6 mmoL/L (3.5-5.1); Red Blood Count 3.42 M/mm3 (4.20-5.40); Red Cell Distribution Width 13.6 % (11.5-17.5); White Blood Count 7.3 K/mm3 (4.8-10.8)
[2021-11-08 10:26] LABS: Sodium 129 mmol/L (136-145)
[2021-11-08 10:28] LABS: Alanine Aminotransferase 17 U/L (12-78); Albumin Level 3.3 g/dl (3.5-5.0); Albumin/Globulin Ratio 1.1 (1.1-1.8); Alkaline Phosphatase 220 U/L (38-126); Anion Gap 8.6 mEq/L (5-15); Aspartate Amino Transferase 30 U/L (14-36); Bilirubin,Total 0.4 mg/dl (0.2-1.3); Blood Urea Nitrogen 8 mg/dl (7-17); Carbon Dioxide 21 mmol/L (22.0-30.0); Creatinine Clearance Estimated 28 mL/min (50-200); Estimated Glomerular Filt Rate 61 ml/min (>60); GFR (African American) 74 ML/MIN (>60); Globulin 2.9 g/dL (1.3-3.2); Total Protein,Serum 6.2 g/dl (6.3-8.2)
[2021-11-08 10:29] LABS: Calcium 9.9 mg/dl (8.4-10.2); Glucose 117 mg/dl (74-100)
== END 2021-11-08 10:10 | disposition home or self-care (01) ==
LOC: INF 09:50
PROVIDERS: PCP Family Medicine; Visit Provider Internal Medicine Medical Oncology
DX: C18.9 Malignant neoplasm of colon, unspecified (principal); Z45.2 Encounter for adjustment and management of vascular access device
CPT/HCPCS: 36591; 80053; 85025; J1642

== ENCOUNTER 2021-11-29 10:14 | Outpatient (CLI) | payer MEDICARE, SELFPAY ==
[2021-11-29 10:18] VITALS: BMI 16.2
[2021-11-29 10:39] LABS: Basophils # 0.1 K/mm3 (0-0.2); Basophils % 0.9 % (0.1-2.0); Eosinophils # 0.1 K/mm3 (0.0-0.4); Eosinophils % 0.9 % (0.1-12.0); Hematocrit 32.5 % (37.0-47.0); Hemoglobin 9.9 g/dL (12.2-16.2); Lymphocytes # 0.9 K/mm3 (0.7-4.5); Lymphocytes % 14.9 % (10-50); Mean Corpuscular HGB Conc 30.6 g/dL (31.8-35.4); Mean Corpuscular Hemoglobin 30.9 pg (27.0-31.2); Mean Corpuscular Volume 100.8 fl (81-99); Mean Platelet Volume 9.5 fl (7.4-10.4); Monocytes # 0.4 K/mm3 (0.1-1.0); Neutrophils # 4.6 K/mm3 (1.8-7.8); Neutrophils % 77.3 % (37.0-80.0); Platelet Count 414 K/mm3 (142-424); Red Blood Count 3.22 M/mm3 (4.20-5.40); Red Cell Distribution Width 13.6 % (11.5-17.5)
[2021-11-29 10:50] LABS: Alanine Aminotransferase 19 U/L (12-78); Albumin Level 3.2 g/dl (3.5-5.0); Albumin/Globulin Ratio 1.1 (1.1-1.8); Alkaline Phosphatase 196 U/L (38-126); Anion Gap 12.1 mEq/L (5-15); Aspartate Amino Transferase 33 U/L (14-36); Blood Urea Nitrogen 11 mg/dl (7-17); Calcium 9.2 mg/dl (8.4-10.2); Carbon Dioxide 19 mmol/L (22.0-30.0); Chloride 102 mmol/L (98-107); Creatinine Clearance Estimated 28 mL/min (50-200); Estimated Glomerular Filt Rate 61 ml/min (>60); GFR (African American) 74 ML/MIN (>60); Globulin 2.9 g/dL (1.3-3.2); Glucose 178 mg/dl (74-100); Potassium 3.1 mmoL/L (3.5-5.1); Sodium 130 mmol/L (136-145); Total Protein,Serum 6.1 g/dl (6.3-8.2)
[2021-11-29 10:51] LABS: Bilirubin,Total 0.1 mg/dl (0.2-1.3)
[2021-11-29 11:49] VITALS: BP 91/54; PULSE 88; RESP 16; TEMP 36.4; O2SAT 100
[2021-11-29 12:10] VITALS: BP 104/58; PULSE 85; RESP 16; O2SAT 99
[2021-11-29 12:40] VITALS: BP 99/60; PULSE 88; RESP 18; O2SAT 99
[2021-11-29 12:50] VITALS: BP 103/61; PULSE 86; RESP 16; TEMP 36.5; O2SAT 100
== END 2021-11-29 12:58 | disposition home or self-care (01) ==
LOC: INF 10:15
PROVIDERS: PCP Family Medicine; Visit Provider Internal Medicine Medical Oncology
DX: Z45.2 Encounter for adjustment and management of vascular access device (principal); C18.9 Malignant neoplasm of colon, unspecified; E86.0 Dehydration
CPT/HCPCS: 80053; 85025; 96360; J1642